=== PATIENT | male | born 1950 | race Caucasian/White ===

== ENCOUNTER 2019-06-09 10:32 | Outpatient (CLI) | payer MEDICARE, OTHER, SELFPAY | END 2019-06-09 10:33 | disposition home or self-care (01) | LOC: LAB 10:37 | PROVIDERS: Family Provider Nurse Practitioner Family; PCP Nurse Practitioner Family; Visit Provider Neurological Surgery | DX: Z01.818 Encounter for other preprocedural examination (principal); Z72.0 Tobacco use | CPT/HCPCS: 36415; 80323 ==

== ENCOUNTER → 2019-10-30 16:13 | Outpatient (BNVA) | payer MEDICARE, OTHER, SELFPAY | PROVIDERS: Family Provider Nurse Practitioner Family; PCP Nurse Practitioner Family; Visit Provider Nurse Practitioner | DX: Z87.891 Personal history of nicotine dependence (principal); J18.8 Other pneumonia, unspecified organism | CPT/HCPCS: 71046 ==

== ENCOUNTER → 2019-11-19 15:45 | Outpatient (BNVA) | payer MEDICARE, OTHER, SELFPAY | PROVIDERS: Family Provider Nurse Practitioner Family; PCP Nurse Practitioner Family; Visit Provider Nurse Practitioner | DX: R05 Cough (principal) | CPT/HCPCS: 71046 ==

== ENCOUNTER → 2019-12-22 14:22 | Outpatient (BNVA) | payer MEDICARE, OTHER, SELFPAY | PROVIDERS: Family Provider Nurse Practitioner Family; PCP Nurse Practitioner Family; Visit Provider Nurse Practitioner Family | DX: G47.34 Idiopathic sleep related nonobstructive alveolar hypoventilation (principal); R07.89 Other chest pain; R06.83 Snoring; R05 Cough | CPT/HCPCS: 71046; 85025 ==

== ENCOUNTER 2019-12-31 11:02 | Outpatient (CLI) | payer MEDICARE, OTHER, SELFPAY ==
--- NOTE | 2019-12-31 11:15 | CT_ITS ---
WS: [id number] CT CHEST TECHNIQUE: Noncontrast CT of the chest with coronal and sagittal reformatted images. CLINICAL INFORMATION: persistent cough, chest pain COMPARISON: None. DLP: 806.[address] scans at use at least one of these dose optimization techniques: automat ed exposure control; mA and/or kV adjustment per patient size (includes targeted exams where dose is matched to clinical indication); or iterative reconstruction. FINDINGS: Mild chronic emphysematous changes. No acute pulmonary infiltrates. Atelectasis in the lung bases. Mu ltiple small noncalcified pulmonary nodules in both lungs largest measuring 4 to 5 mm. Several nodule s are subpleural in location. Approximately 8-10 small nodules. Recommend 6 month follow-up. Thyroid gland is normal. Aortic calcification. No mediastinal or hilar lymphadenopathy. Adrenal glands are normal. Mild thoracic kyphosis. Prior vertebroplasty changes at L1. CT/CT chest wo con [id number] IMPRESSION: 1. Mild chronic emphysematous changes. 2. Numerous noncalcified pulmonary nodules in both lungs measuring 4 to 5 mm i n maximum dimension. Recommend 6 month follow-up. 3. No mediastinal or hilar lymphadenopathy. 4. Mild chronic emphysematous changes. 5. No acute pulmonary infiltrates.
== END 2019-12-31 11:03 | disposition home or self-care (01) ==
LOC: RADWPI 11:05
PROVIDERS: Family Provider Nurse Practitioner Family; PCP Nurse Practitioner Family; Visit Provider Nurse Practitioner Family
DX: R05 Cough (principal); R07.9 Chest pain, unspecified; J43.9 Emphysema, unspecified; R91.8 Other nonspecific abnormal finding of lung field
CPT/HCPCS: 71250

== ENCOUNTER 2020-01-08 15:50 | Emergency (ER) | payer MEDICARE, OTHER, SELFPAY ==
[2020-01-08 15:56] VITALS: BP 131/98; PULSE 0; RESP 20; TEMP 36.8; O2SAT 96; BMI 26.6
--- NOTE | 2020-01-08 16:10 | ED_ITS ---
HPI - Back Pain/Injury General: Chief Complaint: Back Pain/Injury Stated Complaint: BACK PAIN Time Seen by Provider: 01/08/20 16:05 History of Present Illness: HPI Narrative: She complains about is sciatic nerve left leg is inflamed is waiting pain stimulator but this is a worse has been in a while radiates down his left hip down all the way to his foot. And he says pain radiates up his back into his shoulders down both arms also he denies diaphoresis shortness of breath chest pain chest pressure related problems that is all from his back he is had this happen before. Takes a lot of medications. MD elicited complaint: back pain Pertinent past history: other (Sciatica) Onset (ago): year(s) Timing: constant Severity: severe Similar Symptoms Previously: Yes Quality: sharp and aching Location: lumbar spine Radiation: buttocks, left upper leg and left leg below the knee Exacerbating factors: movement Relieving factors: none Associated symptoms: Reports no associated symptoms; Deny abdominal pain, chills, fever(s), nausea or vomiting Review of Systems Const: Denies: fever(s), chills or body aches Eyes: Denies: change in vision or blurry vision ENMT: Denies: throat pain or nasal congestion Card: Denies: chest pain or dyspnea on exertion Resp: Denies: dyspnea, productive cough or non-productive cough GI: Denies: abdominal pain, nausea or vomiting : Denies: difficulty urinating Musc: Reports: back pain (Says his back pain is flared up which he has had happen plenty at times is worse the last day or 2 is going down his left leg all the way down to his foot that medication is not helping like he normally does.) and extremity pain Skin/Breast: Denies: rash Neuro: Denies: headache(s) Psych: Denies: anxiety or depression Rivas/Lymph: Denies: easy bruising PFSH ED PFSH: Medical History (Updated 01/07/20 @ 16:31 by Miquel Bowman MD) Anxiety Back pain with history of spinal surgery Chronic obstructive pulmonary emphysema DDD (degenerative disc disease) Environmental and seasonal allergies Hypertension Pulmonary nodules Surgical History History of appendectomy History of hip fracture Left Hip October 11, 2019 surgery in [place], [place] History of knee surgery History of lumbar surgery Family History Other Arthritis Denies family history of Bleeding disorder Social History Smoking and tobacco status: current some day smoker cigarettes Packs smoked per day: 0.5 Years cigarettes smoked: 50 Second hand smoke exposure: Yes Smoking risk assessment/counseling performed?: Yes Alcohol intake: current Alcohol intake frequency: few times a month Desire information about alcohol rehabilitation?: No Counseling given: No Desire information about substance/drug rehabilitation?: No Counseling given: No Caregiver/support person: No Lives independently: Yes Housing: House Marital status: Single Number of children: 0 Highest education level completed: Associate Degree: Occupational, Technical, Vocational Program service: Yes Current occupational status: retired Pets and animals: Yes History of recent travel: No Current gender identity: Male Physical Exam Narrative: EXAM NARRATIVE: Patient appears at these uncomfortable is staying up in the room is walking with a cane which keeps her left leg off the floor somewhat leaned forward Const: COMMON NORMALS: no acute distress, average body habitus and patient oriented x3 HENMT: COMMON NORMALS: normocephalic HEAD & SCALP: normal to inspection and normocephalic FACE & SINUS: normal facial exam Eye: COMMON NORMALS: conjunctivae normal GENERAL EYE: appearance normal, both eyes and all related structures CONJUNCTIVA: Yes conjunctivae normal Neck/C-Spine: COMMON NORMALS: no JVD Chest: COMMONS NORMALS: normal inspection of the chest Resp: COMMON NORMALS: normal respiratory effort and clear to auscultation bilaterally AUSCULTATION: clear to auscultation bilaterally Cardio: COMMON NORMALS: no JVD, regular rate and regular rhythm RATE: regular rate RHYTHM: regular rhythm GI: COMMON NORMALS: Normal to inspection, nondistended, normoactive bowel sounds present Back/Pelvis: LUMBAR SPINE/LOWER BACK: Yes straight leg raise positive left (The limb and raise at 30 degrees no numbness in extremity neurovascular status intact no swelling) Extremity: COMMON NORMALS: normal to inspection and full ROM Neuro: COMMON NORMALS: patient oriented x3 Course Vital Signs: Vital signs: Vital Signs Temperature 98.3 F 01/08/20 15:56 Pulse Rate 0 L 08/13/20 15:56 Respiratory Rate 20 H 01/08/20 15:56 Blood Pressure 131/98 01/08/20 15:56 Pulse Oximetry 96 01/08/20 15:56 Discharge Plan Discharge Prescriptions: No Action betamethasone acet,sod phos [Celestone Soluspan] 6 mg/mL suspension 6 mg intra-articular ONCE Qty: 1 RF: 0 bupivacaine (PF) 0.5 % (5 mg/mL) solution 50 mg intra-articular ONCE Qty: 2 RF: 0 lidocaine (PF) 10 mg/mL (1 %) solution 10 mg intra-articular ONCE Qty: 2 RF: 0 hydrocodone-acetaminophen [[place]] 10-325 mg tablet 1 tab PO TID PRNRF: 0 omeprazole 20 mg capsule,delayed release(DR/EC) 20 mg PO BID RF: 0 omega-3 fatty acids 500 mg capsule 500 mg PO BID RF: 0 Complete Multivitamin Tablet 1 tab PO ONCE RF: 0 amlodipine 10 mg tablet 10 mg PO ONCE PRNRF: 0 diclofenac sodium 75 mg tablet,delayed release (DR/EC) 75 mg PO DAILY RF: 0 gabapentin 300 mg capsule 900 mg PO TID RF: 0 methocarbamol [Robaxin-750] 750 mg tablet 750 mg PO QID RF: 0 guaifenesin [Adult Tussin Chest Congestion] 100 mg/5 mL liquid 200 mg PO Q4H Qty: 240 RF: 0 (DME) Oxygen supply See Rx Instructions .Route .MEDSUPPLY Qty: 1 RF: 0 loratadine [Claritin] 10 mg tablet 10 mg PO DAILY RF: 0 Anoro Ellipta 62.5-25 mcg/actuation blister with device 1 inh INHALATION DAILY Qty: 60 RF: 3 albuterol sulfate [ProAir HFA] 90 mcg/actuation HFA aerosol inhaler 2 inh INHALATION QID PRN (Reason: shortness of breath or wheezing) Qty: 18 RF: 0 Coding Level of Care Code ED Sql Manager for Chg Fwd
[2020-01-08] MEDS: ondansetron 4 MG Tablet 8 MG PO (16:19)
[2020-01-08] MEDS: methylPREDNISolone (DEPO) 80 MG/ML INJ 1 mL IM (16:19)
[2020-01-08] MEDS: morphine 4 mg/mL SDV 1 mL IM (16:19)
--- NOTE | 2020-01-08 16:33 | PC.NURSE ---
pt concerned about tingling in right fingertips after morphine. ED provider notified.
[2020-01-08 17:04] VITALS: BP 137/84; PULSE 73; O2SAT 95
== END 2020-01-08 17:04 | disposition home or self-care (01) ==
PROVIDERS: Emergency Provider Nurse Practitioner Family; PCP Nurse Practitioner Family
DX: M54.9 Dorsalgia, unspecified (principal); I10 Essential (primary) hypertension; F17.210 Nicotine dependence, cigarettes, uncomplicated
CPT/HCPCS: 12345; 96372; 99281; 99283; J1040; J2270; Q0162

== ENCOUNTER → 2020-02-23 11:39 | Outpatient (BNVA) | payer MEDICARE, OTHER, SELFPAY | PROVIDERS: PCP Nurse Practitioner Family; Visit Provider Internal Medicine | DX: Z20.828 Contact with and (suspected) exposure to other viral communicable diseases (principal) | CPT/HCPCS: 87635 ==

== ENCOUNTER 2020-02-25 12:51 | Outpatient (CLI) | payer MEDICARE, OTHER, SELFPAY ==
--- NOTE | 2020-02-25 14:40 | PFTS_ITS ---
Date of Study:02/25/20 Date of Dictation: MECHANICS: Forced vital capacity (FVC) is normal. Forced expiratory volume in one second (FEV1) is normal. FEV1/FVC is reduced. FLOW VOLUME LOOP: Mild scooping. LUNG VOLUMES: Total lung capacity (TLC) is normal. Residual volume (RV) is normal. DIFFUSING CAPACITY FOR CARBON MONOXIDE: Mild reduced. INTERPRETATION: The pulmonary function tests are normal. Lung volumes are normal. Gas exchange (DLCO) is mildly reduced. MTDD
== END 2020-02-25 12:52 | disposition home or self-care (01) ==
LOC: RT 12:52
PROVIDERS: PCP Nurse Practitioner Family; Visit Provider Internal Medicine Pulmonary Disease
DX: R91.8 Other nonspecific abnormal finding of lung field (principal); F17.200 Nicotine dependence, unspecified, uncomplicated
CPT/HCPCS: 94010; 94618; 94726; 94729

== ENCOUNTER 2020-03-04 20:00 | Outpatient (CLI) | payer MEDICARE, OTHER, SELFPAY | END 2020-03-04 20:01 | disposition home or self-care (01) | LOC: SLEEP 03-05 08:17 | PROVIDERS: PCP Nurse Practitioner Family; Visit Provider Specialist | DX: R06.83 Snoring (principal); R53.83 Other fatigue; G47.33 Obstructive sleep apnea (adult) (pediatric) | CPT/HCPCS: 95810 ==

== ENCOUNTER 2020-07-08 10:40 | Outpatient (CLI) | payer MEDICARE, OTHER, SELFPAY ==
--- NOTE | 2020-07-08 10:45 | CT_ITS ---
WS: [id number] CT CHEST WITHOUT INTRAVENOUS CONTRAST HISTORY: Pulmonary emphysema TECHNIQUE: Contiguous 5 mm axial imaging performed on the thorax. Coronal and sagittal reformats are submitted. All CT scans at [facility] use at least one of these dose optimization techniq ues: automated exposure control; mA and/or kV adjustment per patient size (includes targeted exams wh ere dose is matched to clinical indication); or iterative reconstruction. CONTRAST: None DLP: 711.33 mGy.cm COMPARISON: 12/31/2019 Lungs and central airway: Chronic emphysema. There are numerous bilateral pulmonary nodules with the largest measuring 6 mm in the LEFT lower lobe. No increase in size or number of these nodules. Nodule s are on a background of emphysema and interstitial thickening. Mild tree-in-bud opacifications at th e lung bases are similar to the prior study. Mild changes of interstitial fibrosis. Pleura: Normal. No pleural effusion. Heart and pericardium: Normal size heart with no pericardial effusion. Mediastinum and lillian: No mediastinum or hilar adenopathy. Vessels: Mild atherosclerosis aorta. Coronary artery calcifications. Chest wall and lower neck: No soft tissue masses. Upper abdomen: Mild atherosclerosis aorta. No abnormality. Dorsal column stimulator generator over th e posterior LEFT upper abdomen. Osseous structures: L1 compression fracture with vertebroplasty. Mild anterior wedging of T12, T10 an d T9. Prior fracture sternal body. CT/CT chest wo con [id number] IMPRESSION: 1. Chronic emphysema. 2. Noncalcified and calcified pulmonary nodules without increase in size or nu mber since 12/31/2019. Recommend 12 month follow-up CT.
== END 2020-07-08 10:41 | disposition home or self-care (01) ==
LOC: RADWPI 10:41
PROVIDERS: PCP Nurse Practitioner; Visit Provider Internal Medicine Pulmonary Disease
DX: J43.9 Emphysema, unspecified (principal); R91.8 Other nonspecific abnormal finding of lung field
CPT/HCPCS: 71250

== ENCOUNTER → 2020-11-02 11:42 | Outpatient (BNVA) | payer MEDICARE, OTHER, SELFPAY | PROVIDERS: PCP Nurse Practitioner; Visit Provider Nurse Practitioner | DX: J43.9 Emphysema, unspecified (principal) | CPT/HCPCS: 71046; 81000; 85025 ==

== ENCOUNTER 2021-03-08 10:41 | Outpatient (CLI) | payer MEDICARE, OTHER, SELFPAY ==
--- NOTE | 2021-03-08 11:45 | CT_ITS ---
WS: [id number] LDCT LUNG CANCER SCREENING HISTORY: Lung screening TECHNIQUE: Axial imaging performed from the apices to 1 cm below the costophrenic angles. Coronal and sagittal reformats are submitted with axial MIP series. All CT scans at [facility] use at least one of these dose optimization techniques: automated exposure control; mA and/or kV adjustment per patient size (includes targeted exams where dose is matched to clinical indication); or iterativ e reconstruction. DLP: 55.38 mGy.cm DIvol: 1.58 mGy COMPARISON: Chest CT to 2020 Diagnostic quality: Satisfactory Lung Nodules: Stable 5 mm nodule RIGHT upper lobe. Stable ovoid 6 mm nodule LEFT lower lobe. No new n odules. Lungs: Hyperexpanded lungs from emphysema. Heart: Mild enlargement of the heart. Scattered coronary artery calcifications. Other findings: Mild atherosclerosis aorta. Small mediastinal and an hilar lymph nodes. Small hiatal hernia. Dorsal column stimulator projects posterior to the mid thoracic cord. Prior fracture with hea ling of the sternal body. CT/CT lung screening [id number] IMPRESSION: LUNG-RADS: 2-Benign Appearance or Behavior FOLLOW UP: 12 Month: Continue annual screening with LDCT OTHER FINDINGS (S MODIFIER): None.
== END 2021-03-08 10:42 | disposition home or self-care (01) ==
PROVIDERS: PCP Nurse Practitioner; Visit Provider Internal Medicine Pulmonary Disease
DX: Z12.2 Encounter for screening for malignant neoplasm of respiratory organs (principal); Z87.891 Personal history of nicotine dependence; I70.0 Atherosclerosis of aorta; K44.9 Diaphragmatic hernia without obstruction or gangrene
CPT/HCPCS: 71271

== ENCOUNTER → 2021-04-29 11:43 | Outpatient (BNVA) | payer MEDICARE, OTHER, SELFPAY | PROVIDERS: PCP Nurse Practitioner; Visit Provider Surgery | DX: R10.13 Epigastric pain (principal); R10.9 Unspecified abdominal pain; Z20.822 Contact with and (suspected) exposure to COVID-19 | CPT/HCPCS: 80053; 83690; 85025; 87635 ==

== ENCOUNTER 2021-05-04 12:56 | Outpatient (CLI) | payer MEDICARE, OTHER, SELFPAY ==
[2021-05-04] MEDS: iohexol 300 mg/mL 100 mL Btl IV (14:46)
[2021-05-04] MEDS: iohexol 300 mg/mL 50 mL Btl PO (14:47)
--- NOTE | 2021-05-04 15:00 | CT_ITS ---
WS: [id number] Exam: CT abdomen pelvis w con* [id number] Date/Time of Exam: 05/04/2021 1:06 PM Reason For Exam: R10.13 - Epigastric pain DLP: 1089.[address] scans at [facility] use at least one of these dose optimization techniques: automated e xposure control; mA and/or kV adjustment per patient size (includes targeted exams where dose is matc hed to clinical indication); or iterative reconstruction. Lower lung zones are clear. Small hiatal hernia. The stomach is otherwise unremarkable. There is dila tation of the intra and extrahepatic bile ducts. The common bile duct measures as much as 2 cm at gre atest diameter. The common duct measures 1.5 cm at the level of the pancreatic head. No obvious calci fied stones in the gallbladder. No sign of acute cholecystitis. Mild intrahepatic ductal dilatation. The liver and spleen are otherwise unremarkable. No obvious pancreatic mass. The abdominal aorta is n ormal in caliber. The portal vein and IVC are patent. Normal adrenal glands and kidneys. Small bowel loops are normal in caliber. Colonic diverticulosis but no sign of acute diverticulitis. Postoperativ e change with anastomosis in the sigmoid colon. No sign of acute appendix. No free air. No lymphadeno clifford. Intact urinary bladder. No mass or adenopathy seen in the pelvis. Unremarkable prostate gland and seminal vesicles. Tiny fat filled periumbilical hernia. Neurostimulator pack seen along the poste rior left flank region. Hardware in the proximal left femur. Anterior fusion with disc spacer at L5-S 1. Old compression fracture of L1 with vertebroplasty, no destructive bone lesions are seen. Recommendations: ERCP or MRCP might be considered for further workup. CT/CT abdomen pelvis w con* [id number] IMPRESSION: 1. Intrahepatic and extrahepatic ductal dilatation. The common bile duct measur es as much as 2 cm at greatest diameter. The common duct measures 1.5 cm in stacie meter at the level of the pancreatic head. Obstruction secondary to retained st one or neoplasm should be considered. 2. No obvious pancreatic mass. No lymphadenopathy or acute finding in the abdom en or pelvis. 3. Mild colonic diverticulosis. Postoperative changes in the sigmoid colon. 4. Other minor findings as above.
== END 2021-05-04 12:57 | disposition home or self-care (01) ==
PROVIDERS: PCP Nurse Practitioner; Visit Provider Surgery
DX: R10.13 Epigastric pain (principal); K57.90 Diverticulosis of intestine, part unspecified, without perforation or abscess without bleeding
CPT/HCPCS: 74177; Q9967

== ENCOUNTER 2021-05-05 08:29 | Day surgery (SDC) | payer MEDICARE, OTHER, SELFPAY ==
--- NOTE | 2021-05-05 08:45 | W.PM.OPSFHP ---
Same Day Surgery H&P Indication for Procedure/HPI DATE OF PROCEDURE: May 05, 2021 CHIEF COMPLAINT/INDICATIONFOR SURGICAL PROCEDURE: egd/colon PREOP DIAGNOSIS: abdominal pain PLANNED PROCEDRUE: Operation Date: 05/05/21 09:00 Proposed Procedures p EGD/Colon 75025 R10.13(Not Applicable) - Srikanth Lanier MD s Colonoscopy 06087 R10.13(Not Applicable) - Srikanth Lanier MD Medications/Allergies* Home Medications Medication Instructions Recorded Confirmed Type multivitamin,[id number] 1 tab PO DAILY 06/10/19 05/03/21 History omega-3 fatty acids 500 mg capsule 500 mg PO BID 06/10/19 05/03/21 History gabapentin 300 mg capsule 900 mg PO TID cap 01/07/20 05/03/21 History latanoprost 1 drp OPHTHALMIC (EYE) DAILY 01/08/20 05/03/21 History cetirizine 10 mg tablet 10 mg PO DAILY PRN tab 07/21/20 05/03/21 History tizanidine 2 mg tablet 2 mg PO BID PRN 07/21/20 05/03/21 History oxycodone 10 mg tablet 10 mg PO Q4H PRN 03/15/21 05/03/21 History Allergies/Adverse Reactions Allergy/AdvReac Type Severity Reaction Status Date / Time lisinopril Allergy Unknown Verified 04/29/21 11:03 celecoxib [From Celebrex] AdvReac GI upset Verified 04/29/21 11:03 Pertinent History/Comorbid Conditions* Medical History (Updated 03/15/21 @ 09:08 by Srikanth Lanier MD) Anxiety Barretts esophagus Chronic obstructive pulmonary emphysema DDD (degenerative disc disease) Diverticulitis Environmental and seasonal allergies History of Carreno's esophagus Hypertension Surgical History (Updated 03/15/21 @ 09:08 by Srikanth Lanier MD) History of appendectomy History of colonoscopy 2015 History of esophagogastroduodenoscopy (EGD) 2015 History of hip fracture Left Hip October 11, 2019 surgery in [place], [place] History of knee surgery History of lumbar surgery History of open sigmoidectomy Family History (Updated 09/23/19 @ 09:31 by BILL Quiñones) Arthritis Denies family history of Bleeding disorder Social History Quit status (tobacco): has quit using tobacco Year quit tobacco: October 2020 Former quit date comment: 1ppd x 50 years Second hand smoke exposure: Yes Smoking risk assessment/counseling performed?: Yes Alcohol intake: current Alcohol intake frequency: few times a month Desire information about alcohol rehabilitation?: No Counseling given: No Desire information about substance/drug rehabilitation?: No Counseling given: No Caregiver/support person: No Lives independently: Yes Household members: significant other Housing: House Marital status: Life Partner Number of children: 0 Highest education level completed: Associate Degree: Occupational, Technical, Vocational Program service: Yes Current occupational status: retired Pets and animals: Yes History of recent travel: No Current gender identity: Male Pertinent Exam Findings regular rate & rhythm Recommendations Surgery/Procedure today Coding Level of Care Code Acute Conduit Bender for Ghislaine Gage
[2021-05-05 08:51] VITALS: BP 134/85; PULSE 81; RESP 18; TEMP 36.2; O2SAT 96; BMI 25.2
--- NOTE | 2021-05-05 09:07 | P.ANESASSM_ITS ---
Pre-Anesthetic Assessment Pre-Anesthetic Assessment: Height/Weight: Height 1.73 m Weight 75.296 kg Temp Pulse Resp BP Pulse Ox 97.1 F L 81 18 134/85 96 05/05/21 08:51 05/05/21 08:51 05/05/21 08:51 05/05/21 08:51 05/05/21 08:51 Preop Diagnosis: abdominal pain Proposed Procedure: Operation Date: 05/05/21 09:00 Proposed Procedures p EGD/Colon 54666 R10.13(Not Applicable) - Srikanth Lanier MD s Colonoscopy 33554 R10.13(Not Applicable) - Srikanth Lanier MD Familial anesthetic complications: none Was Beta Raiza taken within 24 hours: N/A Was Clonidine taken within 24 hours: N/A Last intake: Intake Last Liquid Date 05/04/21 Last Liquid Time 23:30 Last Solid Date 05/03/21 Last Solid Time 18:00 Social: Social History: Alcohol (social) and Tobacco (social) Exam: Pre-Anes Outpt Exam: alert, oriented x 3, clear to auscultation bilaterally and regular rate & rhythm Airway: Submandibular: WNL Cervical ROM: WNL MP: 1 Dentition: Full Pulmonary: Pulmonary: COPD CV/HEM: CV/HEM: None reported : : None reported Hepatic: Hepatic: None reported GI: GI: GERD (semi controlled) and Hiatus hernia Metabolic: Metabolic: None reported Musc/skel: Musc/skel: Lower Back Pain, OA/DJD and Weakness (lower extremities) Neuropsych: Neuropsych: Anxiety Anesthetic Plan: ASA status: 2 Anesthesia: MAC Risk of > 500 ml blood loss (7ml/kg in children): No PFSH Anesthesia PFSH: Medical History Anxiety Barretts esophagus Chronic obstructive pulmonary emphysema DDD (degenerative disc disease) Diverticulitis Environmental and seasonal allergies History of Carreno's esophagus Hypertension Surgical History History of appendectomy History of colonoscopy 2015 History of esophagogastroduodenoscopy (EGD) 2015 History of hip fracture Left Hip October 11, 2019 surgery in [place], [place] History of knee surgery History of lumbar surgery History of open sigmoidectomy Family History Other Arthritis Denies family history of Bleeding disorder Social History Quit status (tobacco): has quit using tobacco Year quit tobacco: October 2020 Former quit date comment: 1ppd x 50 years Second hand smoke exposure: Yes Smoking risk assessment/counseling performed?: Yes Alcohol intake: current Alcohol intake frequency: few times a month Desire information about alcohol rehabilitation?: No Counseling given: No Desire information about substance/drug rehabilitation?: No Counseling given: No Caregiver/support person: No Lives independently: Yes Household members: significant other Housing: House Marital status: Life Partner Number of children: 0 Highest education level completed: Associate Degree: Occupational, Technical, Vocational Program service: Yes Current occupational status: retired Pets and animals: Yes History of recent travel: No Current gender identity: Male Data Anesthesia Cardiac Studies: No Data to Display
[2021-05-05] MEDS: sodium chloride 0.9% 1,000 ML 30 ML IV (09:09)
[2021-05-05 10:03] LABS: Basophils # 0.1 10^3/uL (0.0-0.1); Basophils % 0.5 %; Eosinophils # 0.1 10^3/uL (0.0-0.8); Eosinophils % 0.8 %; Hematocrit 41.5 % (42.0-52.0); Hemoglobin 13.3 g/dL (11.7-16.6); Lymphocytes # 1.5 10^3/uL (0.8-4.8); Lymphocytes % 14.1 %; Mean Corpuscular Hemoglobin 30.2 pg (28.0-34.0); Mean Corpuscular Volume 94.3 fl (80-94); Mean Platelet Volume 9.9 fL (7.4-10.4); Monocytes # 0.9 10^3/uL (0.2-0.9); Monocytes % 8.8 %; Neutrophils % 75.3 %; Nucleated Red Blood Cells % 0 %; Platelet Count 273 10^3/cmm (130-400); Red Cell Distribution Width 12.9 % (12.1-15.1); White Blood Count 10.6 10^3/uL (4.0-10.0)
[2021-05-05 10:23] VITALS: BP 105/66; PULSE 75; RESP 16; TEMP 36.1; O2SAT 98
--- NOTE | 2021-05-05 10:29 | ANE.PACU2 ---
Inpatient post-anesthesia follow up: Airway intact: Yes Vital signs: Temperature 97.0 F Pulse Rate 75 Respiratory Rate 16 Blood Pressure 105/66 Pulse Oximetry 98 Oxygen Delivery Me thod Room Air Oxygen Flow Rate Fraction of Inspir ed Oxygen Hydration adequate: Yes Nausea and vomiting: No Pain level: 1 Mental status: Baseline
[2021-05-05 10:32] LABS: Alanine Aminotransferase 11 U/L (0-41); Albumin Level 4.1 g/dL (3.5-5.2); Alkaline Phosphatase 89 IU/L (40-130); Anion Gap 14.5 (5-19); Aspartate Amino Transferase 13 U/L (0-40); Blood Urea Nitrogen 11 mg/dL (8-23); Calcium 8.5 mg/dL (8.5-10.5); Cancer Antigen 19 9 5.55 U/mL (0-35); Carbon Dioxide 22 mmol/L (22-29); Chloride 108 mmol/L (98-107); Globulin 3.3 g/dL (1.3-4.6); Glomerular Filtration Rate 66.6 mL/min (90-130); Glucose 101 mg/dL (65-115); Lipase 32 U/L (13-60); Osmolality Calculated 290 mOsm/kg (285-295); Potassium 4.5 mmol/L (3.5-5.1); Sodium 140 mmol/L (136-145); Total Bilirubin 0.3 mg/dL (0.15-1.2); Total Protein 7.4 g/dL (6.6-8.7)
[2021-05-05 10:33] VITALS: BP 115/75; PULSE 80; RESP 16; TEMP 36.2; O2SAT 96
== END 2021-05-05 10:58 | disposition home or self-care (01) ==
PROVIDERS: PCP Nurse Practitioner; Visit Provider Surgery
PROC: 0DJ08ZZ Inspection of Upper Intestinal Tract, Via Natural or Artificial Opening Endoscopic (ICD-10-PCS; CPT 43235; principal; 2021-05-05 09:00)
PROC: 0DJD8ZZ Inspection of Lower Intestinal Tract, Via Natural or Artificial Opening Endoscopic (ICD-10-PCS; CPT 45378; 2021-05-05 09:00)
DX: K21.00 Gastro-esophageal reflux disease with esophagitis, without bleeding (principal); K29.50 Unspecified chronic gastritis without bleeding; K64.8 Other hemorrhoids; R10.9 Unspecified abdominal pain; J44.9 Chronic obstructive pulmonary disease, unspecified; F41.9 Anxiety disorder, unspecified; I10 Essential (primary) hypertension; K44.9 Diaphragmatic hernia without obstruction or gangrene; K57.92 Diverticulitis of intestine, part unspecified, without perforation or abscess without bleeding; Z87.891 Personal history of nicotine dependence
CPT/HCPCS: 43239; 45378; 80053; 83690; 85025; 86301; 88305; 96360; 96361; J2704; J7030

== ENCOUNTER 2021-06-08 09:58 | Emergency (ER) | payer OTHER, MEDICARE, SELFPAY ==
[2021-06-08 10:35] VITALS: BP 150/80; PULSE 93; RESP 20; TEMP 36.6; O2SAT 95; BMI 27.3
--- NOTE | 2021-06-08 10:48 | W.ED.BACK ---
HPI - Back Pain/Injury General: Chief Complaint: Back Pain/Injury Stated Complaint: Alot of pain Lower back, all the way down to knees Time Seen by Provider: 06/08/21 10:42 History of Present Illness: HPI Narrative: Patient presents with ongoing chronic back pain. Patient said his back's been flaring up over the last few weeks. Does [facility]. Patient says his osteoarthritis is getting pretty bad and it is making a sciatica flareup. Patient called [facility] today and they said they will be able to get him in at 0 900 tomorrow but patient would like to have something to help with the pain that he has presently until that appointment. Patient denies any recent injury fever chills bowel or bladder problems MD elicited complaint: back pain Pertinent past history: prior back pain and back surgery Onset (ago): year(s) Timing: progressively worsening Severity: moderate Similar Symptoms Previously: Yes Quality: aching Location: lumbar spine, right lower back and left lower back Radiation: buttocks, left upper leg and right upper leg Exacerbating factors: movement, supine positioning and walking Relieving factors: none Associated symptoms: Reports no associated symptoms; Deny abdominal pain, chills, fever(s), nausea or vomiting Review of Systems Const: Denies: fever(s), chills or body aches Eyes: Denies: change in vision or blurry vision ENMT: Denies: throat pain or nasal congestion Card: Denies: chest pain or dyspnea on exertion Resp: Denies: dyspnea, productive cough or non-productive cough GI: Denies: abdominal pain, nausea or vomiting : Denies: difficulty urinating Musc: Reports: back pain (Chronic, treated at pain clinic, takes oxycodone); Denies: extremity pain Skin/Breast: Denies: rash Neuro: Denies: headache(s) Psych: Denies: anxiety or depression Rivas/Lymph: Denies: easy bruising PFSH ED PFSH: Medical History Anxiety Barretts esophagus Chronic obstructive pulmonary emphysema DDD (degenerative disc disease) Diverticulitis Environmental and seasonal allergies Helicobacter pylori gastritis History of Carreno's esophagus Hypertension Surgical History History of appendectomy History of colonoscopy (05/05/21) 2015 2020 - mild diverticulosis History of esophagogastroduodenoscopy (EGD) (05/05/21) 2015 2020 - esophagitis History of hip fracture Left Hip October 11, 2019 surgery in [place], [place] History of knee surgery History of lumbar surgery History of open sigmoidectomy Family History Other Arthritis Denies family history of Bleeding disorder Social History Quit status (tobacco): has quit using tobacco Year quit tobacco: October 2020 Former quit date comment: 1ppd x 50 years Second hand smoke exposure: Yes Smoking risk assessment/counseling performed?: Yes Alcohol intake: current Alcohol intake frequency: few times a month Desire information about alcohol rehabilitation?: No Counseling given: No Desire information about substance/drug rehabilitation?: No Counseling given: No Caregiver/support person: No Lives independently: Yes Household members: significant other Housing: House Marital status: Life Partner Number of children: 0 Highest education level completed: Associate Degree: Occupational, Technical, Vocational Program service: Yes Current occupational status: retired Pets and animals: Yes History of recent travel: No Current gender identity: Male Physical Exam Const: COMMON NORMALS: average body habitus GENERAL APPEARANCE: cooperative Resp: COMMON NORMALS: normal respiratory effort GI: INSPECTION: Yes normal to inspection Back/Pelvis: OTHER: Patient has pain with ambulation, does have a forward leaning gait Psych: COMMON NORMALS: mental status grossly normal Course Vital Signs: Vital signs: Vital Signs Temperature 97.8 F 06/08/21 10:35 Pulse Rate 93 06/08/21 10:35 Respiratory Rate 20 H 06/08/21 10:35 Blood Pressure 150/80 06/08/21 10:35 Pulse Oximetry 95 06/08/21 10:35 Discharge Plan Discharge Prescriptions: No Action gabapentin 300 mg capsule 900 mg PO TID RF: 0 lactulose 10 gram/15 mL solution 10 g PO BID 7 Days Qty: 210 RF: 0 cetirizine [Zyrtec] 10 mg tablet 10 mg PO DAILY PRN (Reason: Allergy Symptoms) RF: 0 tizanidine 2 mg tablet 2 mg PO BID PRN (Reason: Pain) RF: 0 oxycodone 10 mg tablet 10 mg PO Q4H PRN (Reason: Pain) RF: 0 azelastine 137 mcg (0.1 %) aerosol,spray 1 spray intranasal BID Qty: 30 RF: 1 Anoro Ellipta 62.5-25 mcg/actuation blister with device 1 inh inhalation DAILY 90 Days Qty: 180 RF: 3 ondansetron HCl [Zofran] 4 mg tablet 4 mg PO Q12H Qty: 10 RF: 0 latanoprost 0.005 % Drops 1 drp OPHTHALMIC (EYE) DAILY RF: 0 Protonix 40 mg tablet,delayed release (DR/EC) 40 mg PO BID Qty: 28 RF: 0 Coding Level of Care Code ED Distribution A Class Lineman for Ghislaine Gage
[2021-06-08] MEDS: dexamethasone 10 mg/mL INJ IM (11:03)
[2021-06-08] MEDS: ketorolac 60 mg/2 mL INJ IM (11:04)
[2021-06-08 11:54] VITALS: BP 154/83; PULSE 88; RESP 20; TEMP 36.6; O2SAT 96
== END 2021-06-08 11:55 | disposition home or self-care (01) ==
PROVIDERS: Emergency Provider Nurse Practitioner Family; PCP Nurse Practitioner
DX: M54.50 Low back pain, unspecified (principal); J44.9 Chronic obstructive pulmonary disease, unspecified; I10 Essential (primary) hypertension; Z87.891 Personal history of nicotine dependence; Z79.899 Other long term (current) drug therapy
CPT/HCPCS: 80053; 82306; 82607; 84403; 84443; 85025; 96372; 99283; J1100; J1885

== ENCOUNTER → 2021-08-29 08:51 | Outpatient (BNVA) | payer MEDICARE, OTHER, SELFPAY | PROVIDERS: PCP Nurse Practitioner; Visit Provider Nurse Practitioner Family | DX: R53.83 Other fatigue (principal); R39.9 Unspecified symptoms and signs involving the genitourinary system; E55.9 Vitamin D deficiency, unspecified | CPT/HCPCS: 80053; 81000; 82306; 85025 ==

== ENCOUNTER → 2021-11-02 14:44 | Outpatient (BNVA) | payer OTHER, MEDICARE, SELFPAY | PROVIDERS: PCP Nurse Practitioner; Referring Provider Anesthesiology Pain Medicine; Visit Provider Podiatrist Foot & Ankle Surgery | DX: M79.671 Pain in right foot (principal); M77.41 Metatarsalgia, right foot | CPT/HCPCS: 73630; 99203 ==

== ENCOUNTER → 2022-01-04 13:37 | Outpatient (BNVA) | payer OTHER, MEDICARE, SELFPAY | PROVIDERS: PCP Nurse Practitioner; Visit Provider Podiatrist Foot & Ankle Surgery | DX: M77.41 Metatarsalgia, right foot (principal); M21.70 Unequal limb length (acquired), unspecified site | CPT/HCPCS: 99213; 99214 ==

== ENCOUNTER 2022-02-07 15:45 | Outpatient (CLI) | payer OTHER, SELFPAY ==
--- NOTE | 2022-02-07 16:24 | XRR_ITS ---
PROCEDURE INFORMATION: Exam: XR Thoracic Spine Exam date and time: 02/07/2022 4:33 PM Age: 71 years old Clinical indication: Pain in thoracic spine; Prior surgery; Additional info: Thoracic spine pain TECHNIQUE: Imaging protocol: Radiologic exam of the thoracic spine. Views: 3 views. COMPARISON: CT abdomen pelvis w con* [id number] 05/04/2021 2:34 PM FINDINGS: Bones/joints: Vertebroplasty material noted in the L1 vertebral body. Spinal stimulator leads noted in the lower thoracic spine. No acute fracture. Normal alignment. Soft tissues: Unremarkable. XR/XR thoracic spine 2V [id number] IMPRESSION: No acute findings.
--- NOTE | 2022-02-07 16:24 | XRR_ITS ---
PROCEDURE INFORMATION: Exam: XR Cervical Spine Exam date and time: 02/07/2022 4:33 PM Age: 71 years old Clinical indication: Pain; Cervicalgia; Prior surgery TECHNIQUE: Imaging protocol: Radiologic exam of the cervical spine. Views: 4 or 5 views. COMPARISON: CT lung screening [id number] 03/08/2021 10:54 AM FINDINGS: Bones/joints: No acute fracture. Normal alignment. Vertebral body and disc heights are intact. Moderate multilevel facet arthropathy throughout the cervical spine. Soft tissues: Unremarkable. XR/XR cervical spine 4-5V [id number] IMPRESSION: No acute findings. Moderate multilevel facet arthropathy throughout the cervical spine.
== END 2022-02-07 15:46 | disposition home or self-care (01) ==
LOC: RAD 15:54
PROVIDERS: PCP Nurse Practitioner; Visit Provider Nurse Practitioner Family
DX: M54.6 Pain in thoracic spine (principal); M47.812 Spondylosis without myelopathy or radiculopathy, cervical region
CPT/HCPCS: 72050; 72070

== ENCOUNTER → 2022-02-20 13:26 | Outpatient (BNVA) | payer OTHER, SELFPAY | PROVIDERS: PCP Nurse Practitioner; Visit Provider Internal Medicine Pulmonary Disease | DX: J43.9 Emphysema, unspecified (principal); R91.8 Other nonspecific abnormal finding of lung field; G47.33 Obstructive sleep apnea (adult) (pediatric); F17.210 Nicotine dependence, cigarettes, uncomplicated; Z99.81 Dependence on supplemental oxygen | CPT/HCPCS: 99214 ==

== ENCOUNTER 2022-04-10 14:00 | Outpatient (CLI) | payer OTHER, SELFPAY ==
--- NOTE | 2022-04-10 15:00 | CT_ITS ---
WS: [id number] LDCT LUNG CANCER SCREENING HISTORY: lung screening TECHNIQUE: Axial imaging performed from the apices to 1 cm below the costophrenic angles. Coronal and sagittal reformats are submitted with axial MIP series. All CT scans at [facility] use at least one of these dose optimization techniques: automated exposure control; mA and/or kV adjustment per patient size (includes targeted exams where dose is matched to clinical indication); or iterativ e reconstruction. DLP: 89.70 mGy.cm DIvol: Mean CTDIvol: 1.60 (mGy) COMPARISON: 03/08/2021, 12/31/2019 Diagnostic quality: Satisfactory Lung Nodules: There are several noncalcified, subcentimeter pulmonary nodules. The largest nodules me asure 6 mm in the LEFT lower lobe. Stable since 12/31/2019. No new pulmonary nodule or enlarging nodule s. New endobronchial soft tissue. Nodular 4 mm component in the proximal LEFT main bronchus with adjacen t thin linear septations. There are a few septations also noted within the proximal RIGHT mainstem br onchus. Lungs: Chronic emphysema. Heart: Normal size heart. No effusion. Mild coronary artery atherosclerosis. Other findings: Mild atherosclerosis aorta. No adenopathy identified on this unenhanced exam. Moderat e hiatal hernia. Mild hepatic steatosis. Mild thickening of the LEFT adrenal gland. CT/CT lung screening [id number] IMPRESSION: LUNG-RADS: 4A-Probably Suspicious FOLLOW UP: 3 Month LDCT [address] follow-up is to reevaluate the new endobronchial septations an d nodule.
== END 2022-04-10 14:01 | disposition home or self-care (01) ==
LOC: RAD 14:01
PROVIDERS: PCP Nurse Practitioner; Visit Provider Internal Medicine Pulmonary Disease
DX: Z12.2 Encounter for screening for malignant neoplasm of respiratory organs (principal); F17.210 Nicotine dependence, cigarettes, uncomplicated
CPT/HCPCS: 71271

== ENCOUNTER 2022-04-27 10:23 | Outpatient (CLI) | payer MEDICARE, OTHER, SELFPAY ==
[2022-04-27 11:53] LABS: Hepatitis C Virus Antibody Non-Reactive (Nonreactive)
== END 2022-04-27 10:24 | disposition home or self-care (01) ==
LOC: LAB 10:28
PROVIDERS: PCP Nurse Practitioner; Visit Provider Behavioral Pediatrics
DX: H16.009 Unspecified corneal ulcer, unspecified eye (principal)
CPT/HCPCS: 36415; 86431; 86803

== ENCOUNTER → 2022-05-08 11:16 | Outpatient (BNVA) | payer OTHER, SELFPAY | PROVIDERS: PCP Nurse Practitioner; Visit Provider Podiatrist Foot & Ankle Surgery | DX: M77.41 Metatarsalgia, right foot (principal); M21.70 Unequal limb length (acquired), unspecified site | CPT/HCPCS: 99213 ==

== ENCOUNTER → 2022-05-16 11:09 | Outpatient (BNVA) | payer OTHER, SELFPAY | PROVIDERS: PCP Nurse Practitioner; Visit Provider Anesthesiology Pain Medicine | DX: M54.12 Radiculopathy, cervical region (principal); M47.812 Spondylosis without myelopathy or radiculopathy, cervical region; M54.9 Dorsalgia, unspecified | CPT/HCPCS: 99205 ==

== ENCOUNTER 2022-06-13 16:12 | Outpatient (CLI) | payer OTHER, SELFPAY ==
--- NOTE | 2022-06-13 16:00 | CT_ITS ---
WS: [id number] CT CERVICAL SPINE HISTORY: M54.12 - Radiculopathy, cervical region TECHNIQUE: Contiguous 2.0 mm axial imaging performed through the entire cervical spine. Sagittal and coronal reformats also performed. All CT scans at [facility] use at least one of these dose o ptimization techniques: automated exposure control; mA and/or kV adjustment per patient size (include s targeted exams where dose is matched to clinical indication); or iterative reconstruction. DLP: 211.37 mGy.cm COMPARISON: Radiograph 02/07/2022 Very slight increase in the cervical lordosis. Posterior alignment is normal. Very slight curvature t o the RIGHT. Patient's head is tilted to the RIGHT. No fractures. Facet joints are normally aligned b ut narrowed by facet joint arthritis. Craniocervical junction is normally aligned. The odontoid proce ss is intact. Lateral masses of C1 and C2 are normal. C2-C3: Small central disc protrusion with no stenosis. Moderate RIGHT facet joint arthritis. C3-C4: Osteophytic ridging around the vertebral body with bilateral moderate facet joint arthritis. M ild central and bilateral foraminal stenosis. C4-C5: Mild osteophytic ridging around the vertebral bodies. Severe RIGHT facet joint arthritis with bony hypertrophy. Mild on the LEFT. Moderate RIGHT foraminal stenosis. C5-C6: Mild vertebral body osteophytic ridging. Mild bilateral facet joint arthritis. No significant stenosis. C6-C7: Moderate to severe LEFT facet joint arthritis. There is an osteophyte from the facet encroachi ng into the foramina. The osteophyte measures 5 x 6 mm and is probably contacting the C7 nerve root. C7-T1: Normal. Soft tissues are normal. Lung apices are clear. CT/CT cervical spin wo con* [id number] IMPRESSION: 1. No acute cervical spine fractures or severe stenosis. 2. Small central disc protrusion at C2-3 with moderate RIGHT facet joint arthr itis. 3. Moderate bilateral facet joint arthritis at C3-4 with mild central and fora nupur stenosis. 4. Severe RIGHT facet joint bony hypertrophy at C4-5. Moderate RIGHT foraminal stenosis. 5. Moderate to severe LEFT facet joint bony hypertrophy without osteophyte raymond suring 5 x 6 mm encroaching into the LEFT foramen and probably contacting the C 7 nerve root.
== END 2022-06-13 16:13 | disposition home or self-care (01) ==
PROVIDERS: PCP Nurse Practitioner; Visit Provider Anesthesiology Pain Medicine
DX: M54.12 Radiculopathy, cervical region (principal); M50.21 Other cervical disc displacement, high cervical region
CPT/HCPCS: 72125

== ENCOUNTER → 2022-06-14 14:23 | Outpatient (BNVA) | payer OTHER, SELFPAY | PROVIDERS: PCP Nurse Practitioner; Visit Provider Anesthesiology Pain Medicine | DX: M47.812 Spondylosis without myelopathy or radiculopathy, cervical region (principal) | CPT/HCPCS: 64490; 64491; 64492 ==

== ENCOUNTER → 2022-06-29 11:27 | Outpatient (BNVA) | payer OTHER, SELFPAY | PROVIDERS: PCP Nurse Practitioner; Visit Provider Anesthesiology Pain Medicine | DX: M47.812 Spondylosis without myelopathy or radiculopathy, cervical region (principal); W19.XXXA Unspecified fall, initial encounter; Y92.009 Unspecified place in unspecified non-institutional (private) residence as the place of occurrence of the external cause; J40 Bronchitis, not specified as acute or chronic | CPT/HCPCS: 71250; 72074; 99214 ==

== ENCOUNTER 2022-07-18 20:00 | Outpatient (CLI) | payer OTHER, SELFPAY | END 2022-07-18 20:01 | disposition home or self-care (01) | LOC: SLEEP 07-19 02:19 | PROVIDERS: PCP Nurse Practitioner; Visit Provider Nurse Practitioner | DX: R06.83 Snoring (principal); R53.83 Other fatigue; G47.33 Obstructive sleep apnea (adult) (pediatric); G47.31 Primary central sleep apnea | CPT/HCPCS: 95810 ==

== ENCOUNTER 2022-07-26 17:27 | Emergency (ER) | payer OTHER, SELFPAY ==
[2022-07-26 17:54] VITALS: BP 135/81; PULSE 92; RESP 22; TEMP 36.7; O2SAT 95; BMI 27.3
[2022-07-26 18:35] LABS: Basophils # 0.1 10^3/uL (0.0-0.1); Basophils % 0.4 %; Eosinophils # 0.1 10^3/uL (0.0-0.8); Eosinophils % 0.7 %; Hematocrit 44.3 % (42.0-52.0); Hemoglobin 14.3 g/dL (11.7-16.6); Lymphocytes # 2.2 10^3/uL (0.8-4.8); Mean Corpuscular HGB Conc 32.3 g/dL (30.0-36.0); Mean Corpuscular Hemoglobin 30.1 pg (28.0-34.0); Mean Corpuscular Volume 93.3 fl (80-94); Mean Platelet Volume 10.1 fL (7.4-10.4); Monocytes # 1.5 10^3/uL (0.2-0.9); Monocytes % 11.1 %; Neutrophils # 9.49 10^3/uL (1.8-7.7); Neutrophils % 70.7 %; Nucleated Red Blood Cells % 0 %; Platelet Count 282 10^3/cmm (130-400); Red Blood Count 4.75 10^6/uL (4.1-5.3); Red Cell Distribution Width 13.1 % (12.1-15.1); White Blood Count 13.4 10^3/uL (4.0-10.0)
[2022-07-26 18:54] LABS: Alanine Aminotransferase 17 U/L (0-41); Albumin Level 4.2 g/dL (3.5-5.2); Alkaline Phosphatase 87 U/L (40-130); Anion Gap 16.4 (5-19); Aspartate Amino Transferase 14 U/L (0-40); Blood Urea Nitrogen 22 mg/dL (8-23); Calcium 9.5 mg/dL (8.5-10.5); Carbon Dioxide 25 mmol/L (22-29); Chloride 100 mmol/L (98-107); Creatinine Clr Calc Pharmacy 72.6752; Globulin 3.3 g/dL (1.3-4.6); Glomerular Filtration Rate 74.1 mL/min (90-130); Glucose 104 mg/dL (65-115); Lipase 23 U/L (13-60); Osmolality Calculated 288 mOsm/kg (285-295); Potassium 4.4 mmol/L (3.5-5.1); Sodium 137 mmol/L (136-145); Total Bilirubin 0.6 mg/dL (0.15-1.2); Total Protein 7.5 g/dL (6.6-8.7)
--- NOTE | 2022-07-26 20:43 | CTR_ITS ---
PROCEDURE INFORMATION: Exam: CT Abdomen And Pelvis Without Contrast Exam date and time: 07/26/2022 9:49 PM Age: 71 years old Clinical indication: Abdominal pain; Right; Prior surgery; Surgery type: Colon resection. Appy. Duran. Lumbar. Patient HX: C/O RT flank pain. TECHNIQUE: Imaging protocol: Computed tomography of the abdomen and pelvis without contrast. Radiation optimization: All CT scans at this facility use at least one of these dose optimization techniques: automated exposure control; mA and/or kV adjustment per patient size (includes targeted exams where dose is matched to clinical indication); or iterative reconstruction. REPORTING DATA: Count of CT and Cardiac NM exams in prior 12 months: This patient has received 3 known CTs and 0 known cardiac nuclear medicine studies in the 12 months prior to the current study. COMPARISON: CT abdomen pelvis w con* [id number] 05/04/2021 2:34 PM RADIATION DOSE METRICS: Total DLP (mGy-cm): 609.65 FINDINGS: Tubes, catheters and devices: Spinal stimulator. Lungs: Emphysematous changes. Right lower lobe atelectasis versus infiltrate. Left lower lobe 3.4 mm pulmonary nodule similar to prior exam, stability suggests a benign etiology. Liver: Normal. No mass. Gallbladder and bile ducts: Common bile duct dilated to 13 mm, negative for definite obstructing lesion, consider further evaluation with MRCP. Possible cholelithiasis. Pancreas: Normal. No ductal dilation. Spleen: Normal. No splenomegaly. Adrenal glands: Normal. No mass. Kidneys and ureters: Normal. No hydronephrosis. Stomach and bowel: Diverticulosis without diverticulitis. Small fat Appendix: No evidence of appendicitis. Intraperitoneal space: Unremarkable. No free air. No significant fluid collection. Vasculature: Unremarkable. No abdominal aortic aneurysm. Lymph nodes: Unremarkable. No enlarged lymph nodes. Urinary bladder: Unremarkable as visualized. Reproductive: Unremarkable as visualized. Bones/joints: Left hip surgical prem seen in place. Lumbar spine surgical hardware. Soft tissues: Unremarkable. CT/CT abdomen pelvis wo con [id number] IMPRESSION: 1. Common bile duct dilated to 13 mm, negative for definite obstructing lesion, consider further evaluation with MRCP. 2. Left hip surgical prem seen in place. 3. Emphysematous changes. 4. Right lower lobe atelectasis versus infiltrate. 5. Possible cholelithiasis. 6. Diverticulosis without diverticulitis. 7. Lumbar spine surgical hardware. 8. Spinal stimulator. 9. Left lower lobe 3.4 mm pulmonary nodule similar to prior exam, stability suggests a benign etiology.
--- NOTE | 2022-07-26 20:44 | W.ED.BACK ---
HPI - Back Pain/Injury General: Chief Complaint: Back Pain/Injury Stated Complaint: Lower R abd pain Time Seen by Provider: 07/26/22 20:41 Source: patient Mode of arrival: ambulatory Limitations: no limitations History of Present Illness: 71-year-old male states he had a fall few weeks ago he states he was not really having pain but states over the last 5 to 6 days has been having right lower back pain. He states that it hurts to ambulate improved with rest states hurts to palpation as well. States the pain is on the right side does not radiate down his leg he denies any bowel or bladder incontinence denies any other injuries Associated symptoms: Deny abdominal pain, chills, dysuria, fever(s), nausea or vomiting Review of Systems Const: Denies: fever(s), chills, body aches or change in appetite Eyes: Denies: blurry vision or eye discomfort ENMT: Denies: throat pain or dental pain Card: Denies: chest pain Resp: Denies: dyspnea GI: Denies: abdominal pain, nausea, vomiting or diarrhea : Denies: dysuria Musc: Reports: back pain; Denies: neck pain Skin/Breast: Denies: rash Neuro: Denies: headache(s) Psych: Denies: depression Rivas/Lymph: Denies: easy bruising All/Imm: Denies: urticaria PFSH ED PFSH: Medical History Anxiety Barretts esophagus Chronic obstructive pulmonary emphysema DDD (degenerative disc disease) Diverticulitis Environmental and seasonal allergies Helicobacter pylori gastritis History of Carreno's esophagus Hypertension Surgical History History of appendectomy History of colonoscopy (05/05/21) 2015 2020 - mild diverticulosis History of esophagogastroduodenoscopy (EGD) (05/05/21) 2015 2020 - esophagitis History of hip fracture Left Hip October 11, 2019 surgery in [place], [place] History of knee surgery History of lumbar surgery History of open sigmoidectomy Family History Other Arthritis Denies family history of Bleeding disorder Social History Smoking and tobacco status: current every day smoker Quit status (tobacco): has quit using tobacco Year quit tobacco: 5 days ago Former quit date comment: 1ppd x 50 years Second hand smoke exposure: Yes Smoking risk assessment/counseling performed?: Yes Alcohol intake: current Alcohol intake frequency: few times a month Desire information about alcohol rehabilitation?: No Counseling given: No Desire information about substance/drug rehabilitation?: No Counseling given: No Caregiver/support person: No Lives independently: Yes Household members: significant other Housing: House Marital status: Life Partner Number of children: 0 Highest education level completed: Associate Degree: Occupational, Technical, Vocational Program service: Yes Current occupational status: retired Pets and animals: Yes Current gender identity: Male Physical Exam Const: COMMON NORMALS: no acute distress, patient oriented x3 and healthy appearing HENMT: COMMON NORMALS: normocephalic and atraumatic HEAD & SCALP: normocephalic and atraumatic Eye: COMMON NORMALS: Equal, round and reactive pupils present and EOMs intact bilaterally PUPIL: Yes Equal, round and reactive pupils present Neck/C-Spine: COMMON NORMALS: full ROM and supple Chest: COMMONS NORMALS: normal inspection of the chest and normal palpation of entire chest wall Resp: COMMON NORMALS: normal respiratory effort, No retractions, No use of accessory muscles and clear to auscultation bilaterally AUSCULTATION: clear to auscultation bilaterally Cardio: COMMON NORMALS: regular rate, regular rhythm and No murmurs present (Cardio) RATE: regular rate RHYTHM: regular rhythm GI: COMMON NORMALS: Normal to inspection, nondistended, normoactive bowel sounds present, Soft to palpation, non-tender and no masses PALPATION: Yes Soft to palpation Back/Pelvis: OTHER: Right lower lumbar tenderness no midline tenderness Extremity: COMMON NORMALS: normal to inspection and full ROM Neuro: COMMON NORMALS: patient oriented x3, moves all extremities and no focal motor deficits Psych: COMMON NORMALS: mental status grossly normal, Normal thought process present and cooperative THOUGHT PROCESS: Normal thought process present Skin: COMMON NORMALS: no rashes or lesions noted and no wounds GENERAL SKIN EXAM: no rashes or lesions noted Course Vital Signs: Vital signs: Vital Signs Temperature 98.0 F 07/26/22 17:54 Pulse Rate 95 07/26/22 21:47 Respiratory Rate 16 07/26/22 21:47 Blood Pressure 142/93 07/26/22 21:47 Pulse Oximetry 92 07/26/22 21:47 Oxygen Delivery Me thod 07/26/22 21:47 MDM - Back Pain/Injury Medical Decision Making Patient presents here with back pains likely muscular in nature he is point tender on exam his blood work is normal did perform a CT scan no signs of any kidney stone he did have a dilated common bile duct but he has no right upper quadrant pain his bilirubin is normal no sign of obstruction I do not believe he needs an MRCP at this point he is stable for discharge she is to follow-up with PCP and return if worsening. Labs 07/26/22 18:23 07/26/22 18:23 Radiology Impressions Abdomen/Pelvis CT 07/26/22 20:43 IMPRESSION: 1. Common bile duct dilated to 13 mm, negative for definite obstructing lesion, consider further evaluation with MRCP. 2. Left hip surgical prem seen in place. 3. Emphysematous changes. 4. Right lower lobe atelectasis versus infiltrate. 5. Possible cholelithiasis. 6. Diverticulosis without diverticulitis. 7. Lumbar spine surgical hardware. 8. Spinal stimulator. 9. Left lower lobe 3.4 mm pulmonary nodule similar to prior exam, stability suggests a benign etiology. Laboratory Results WBC 13.4 10^3/uL (4.0-10.0) H 07/26/22 18: RBC 4.75 10^6/uL (4.1-5.3) 07/26/22 18:23 Hgb 14.3 g/dL (11.7-16.6) 07/26/22 18: Hct 44.3 % (42.0-52.0) 07/26/22 18: MCV 93.3 fl (80-94) 07/26/22 18: MCH 30.1 pg (28.0-34.0) 07/26/22 18: MCHC 32.3 g/dL (30.0-36.0) 07/26/22 18: RDW 13.1 % (12.1-15.1) 07/26/22 18: Plt Count 282 10^3/cmm (130-400) 07/26/22 18: MPV 10.1 fL (7.4-10.4) 07/26/22 18:23 Neut % (Auto) 70.7 % 07/26/22 18:23 Lymph % (Auto) 16.0 % 07/26/22 18:23 [place] % (Auto) 11.1 % 07/26/22 18:23 Eos % (Auto) 0.7 % 07/26/22 18: Baso % (Auto) 0.4 % 07/26/22 18: Neut # (Auto) 9.49 10^3/uL (1.8-7.7) H 07/26/22 18:23 Lymph # (Auto) 2.2 10^3/uL (0.8-4.8) 07/26/22 18: [place] # (Auto) 1.5 10^3/uL (0.2-0.9) H 07/26/22 18: Eos # (Auto) 0.1 10^3/uL (0.0-0.8) 07/26/22 18: Baso # (Auto) 0.1 10^3/uL (0.0-0.1) 07/26/22 18: Nucleated RBC % (auto) 0 % 07/26/22 18: Nucleated RBCs # 0.0 /100WBC 07/26/22 18: Sodium 137 mmol/L (136-145) 07/26/22 18: Potassium 4.4 mmol/L (3.5-5.1) 07/26/22 18: Chloride 100 mmol/L (98-107) 07/26/22 18: Carbon Dioxide 25 mmol/L (22-29) 07/26/22 18: Anion Gap 16.4 (5-19) 07/26/22 18: BUN 22 mg/dL (8-23) 07/26/22 18: Creatinine 1.0 mg/dL (0.7-1.2) 07/26/22 18: GFR Calculation 74.1 mL/min (90-130) L 07/26/22 18: Glucose 104 mg/dL (65-115) 07/26/22 18: Calculated Osmolality 288 mOsm/kg (285-295) 07/26/22 18: Calcium 9.5 mg/dL (8.5-10.5) 07/26/22 18: Total Bilirubin 0.6 mg/dL (0.15-1.2) 07/26/22 18: AST 14 U/L (0-40) 07/26/22 18: ALT 17 U/L (0-41) 07/26/22 18: Alkaline Phosphatase 87 U/L (40-130) 07/26/22 18: Total Protein 7.5 g/dL (6.6-8.7) 07/26/22 18: Albumin 4.2 g/dL (3.5-5.2) 07/26/22 18: Globulin 3.3 g/dL (1.3-4.6) 07/26/22 18: Lipase 23 U/L (13-60) 07/26/22 18: Urine Color Yellow (Yellow) 07/26/22 20:49 Urine Appearance Clear (CLEAR) 07/26/22 20:49 Urine pH 6 (5-7) 07/26/22 20:49 Ur Specific [place] 1.020 (1.005-1.030) 07/26/22 20:49 Urine Protein Trace (Negative) 07/26/22 20:49 Urine Glucose (UA) Norm (Normal) 07/26/22 20:49 Urine Ketones 1+ (Negative) H 07/26/22 20:49 Urine Blood 2+ (Negative) H 07/26/22 20:49 Urine Nitrate Negative (Negative) 07/26/22 20:49 Urine Bilirubin Neg (Negative) 07/26/22 20:49 Urine Urobilinogen Norm mg/dL (Negative) 07/26/22 20:49 Ur Leukocyte Esterase Negative (Negative) 07/26/22 20:49 Urine RBC 0-4 /hpf (0-2) H 07/26/22 20:49 Urine WBC 0-4 /hpf (0-5) H 07/26/22 20:49 Ur Squamous Epith Cells 0-4 /hpf (0-5) H 07/26/22 20:49 Amorphous Sediment Not Reportable 07/26/22 20:49 Urine Bacteria Trace /hpf (NONE) 07/26/22 20:49 Discharge Plan Discharge Patient Disposition: Home Clinical Impression: Low back pain Condition: Stable Prescriptions: New methocarbamol 750 mg tablet 750 mg PO Q6H PRN (Reason: spasms) Qty: 20 0RF Naprosyn 500 mg tablet 500 mg PO BID PRN (Reason: pain) Qty: 20 0RF No Action gabapentin 300 mg capsule 900 mg PO TID diclofenac sodium 25 mg tablet,delayed release (DR/EC) 25 mg PO BID cetirizine [Zyrtec] 10 mg tablet 10 mg PO DAILY PRN (Reason: Allergy Symptoms) tizanidine 2 mg tablet 2 mg PO BID PRN (Reason: Pain) oxycodone 10 mg tablet 10 mg PO Q4H PRN (Reason: Pain) azelastine 137 mcg (0.1 %) aerosol,spray 1 spray intranasal BID Qty: 30 1RF Rx Instructions: administer into each nostril cefdinir 300 mg capsule 300 mg PO BID azithromycin [Zithromax Z-Sukhdeep] 250 mg tablet See Rx Instructions PO .COMPLEX Qty: 6 0RF Rx Instructions: For 250 mg dose pack: take 500 mg today (day 1), then 250 mg for 4 days (days 2-5) PO promethazine-DM 6.25-15 mg/5 mL syrup 5 - 10 ml PO Q6H PRN (Reason: cough) Qty: 200 0RF methylprednisolone acetate [Depo-Medrol] 40 mg/mL suspension 40 mg Infiltration ONCE Qty: 1 0RF omeprazole 40 mg capsule,delayed release(DR/EC) 40 mg PO DAILY (DME) low profile sport carbon fiber insole with heel lift to right See Rx Instructions .Route .MEDSUPPLY Qty: 1 0RF Rx Instructions: As directed by DENI&O prednisone 20 mg tablet 20 mg PO BID Anoro Ellipta 62.5-25 mcg/actuation blister with device 1 inh inhalation DAILY 90 Days Qty: 180 3RF latanoprost 0.005 % Drops 1 drp OPHTHALMIC (EYE) DAILY Rx Instructions: (LEFT EYE) Discharge Orders: Discharge ED (Routine); Ordered 07/26/22 Ordered By: Armida Curtis Referrals: Adela Desai, EMD SPECIAL EDUCATION TEACHER-C [Primary Care Provider] - 1-3 days Discharge Diet: Advance as tolerated Discharge Activity: Resume usual activity Patient Instructions: Acute Low Back Pain (ED) Coding Level of Care Code ED Curriculum Development Manager for Ghislaine Gage
[2022-07-26 21:00] VITALS: BP 155/95; PULSE 91; RESP 20; O2SAT 94
[2022-07-26 21:03] VITALS: RESP 16
[2022-07-26] MEDS: dexamethasone 10 mg/mL INJ IM (21:03)
[2022-07-26] MEDS: morphine 4 mg/mL SDV 1 mL IM (21:03)
[2022-07-26 21:13] LABS: Add Urine Culture? No; Add Urine Microscopic? YES; Bacteria Urine TRACE /hpf; Bilirubin Urine Neg (Negative); Blood Urine 2+ (Negative); Glucose Urine UA Norm (Normal); Ketones Urine 1+ (Negative); Leukocyte Esterase Urine Negative (Negative); Nitrate Urine Negative (Negative); Protein Urine Trace (Negative); RBC Urine 0-4 /hpf (0-2); Squamous Epithelial Cell Urine 0-4 /hpf (0-5); Urine Appearance Clear (CLEAR); Urine Color Yellow (Yellow); Urobilinogen Urine Norm (Negative); WBC Urine 0-4 /hpf (0-5); pH Urine 6 (5-7)
[2022-07-26 21:47] VITALS: BP 142/93; PULSE 95; RESP 16; O2SAT 92
[2022-07-26 23:28] VITALS: BP 140/79; PULSE 93; RESP 18; O2SAT 94
== END 2022-07-26 23:29 | disposition home or self-care (01) ==
PROVIDERS: Emergency Provider Emergency Medicine; PCP Nurse Practitioner
DX: M54.50 Low back pain, unspecified (principal); F17.210 Nicotine dependence, cigarettes, uncomplicated; J44.9 Chronic obstructive pulmonary disease, unspecified; I10 Essential (primary) hypertension
CPT/HCPCS: 74176; 80053; 81001; 83690; 85025; 96372; 99284; J1100; J2270

== ENCOUNTER → 2022-08-03 16:25 | Outpatient (BNVA) | payer MEDICARE, OTHER, SELFPAY | PROVIDERS: PCP Nurse Practitioner; Visit Provider Nurse Practitioner Family | DX: M79.10 Myalgia, unspecified site (principal); M25.50 Pain in unspecified joint; E66.3 Overweight; K29.70 Gastritis, unspecified, without bleeding; B96.81 Helicobacter pylori [H. pylori] as the cause of diseases classified elsewhere; M62.838 Other muscle spasm; G62.9 Polyneuropathy, unspecified; Z83.2 Family history of diseases of the blood and blood-forming organs and certain disorders involving the immune mechanism | CPT/HCPCS: 80053; 80061; 82607; 82728; 85651; 86140; 86200; 86431 ==

== ENCOUNTER 2022-08-04 15:01 | Emergency (ER) | payer OTHER, SELFPAY ==
[2022-08-04 15:05] VITALS: BP 123/73; PULSE 91; RESP 18; TEMP 36.6; O2SAT 94
--- NOTE | 2022-08-04 15:22 | ED_ITS ---
HPI - Extremity Problem General: Chief complaint: Extremity Problem,Nontraumatic Stated complaint: both feet swelling Time Seen by Provider: 08/04/22 15:21 History of Present Illness: Patient presents to the ER with complaints of bilateral lower extremity edema started approximately 2 days ago with the right worse than the left however he did state that it is improved today, he states he has never had this in the past and is not on any diuretics Complaint: extremity swelling Onset (ago): day(s) (2) Pain Consistency: constant Location: left, right and lower extremity Radiation: none Relieving factors: nothing Exacerbating factors: nothing Associated symptoms: Reports no associated symptoms; Deny chest pain, fever(s) or rash Context: recent travel, immobilization, recent surgery/procedure, history of DVT, history of peripheral vascular disease, recent illness and history of gout Review of Systems General: Reports: 10 or more systems reviewed and unremarkable except in HPI and below Const: Denies: fever(s), chills or body aches Eyes: Denies: change in vision ENMT: Denies: throat pain or bleeding gums Card: Reports: edema and swelling of feet/ankles; Denies: chest pain, palpitations or irregular heart rhythm Resp: Reports: dyspnea (chronic); Denies: productive cough, non-productive cough or wheezing GI: Denies: abdominal pain, nausea, vomiting or diarrhea : Denies: flank pain, difficulty urinating, dysuria or urinary frequency Musc: Reports: back pain (hx of t5 disc issue); Denies: neck pain Skin/Breast: Denies: rash, pruritus or erythema Neuro: Denies: headache(s), numbness in extremities or weakness in extremities Psych: Denies: anxiety, depression or mood swings Endo: Denies: polyuria, polydipsia, tired all the time or cold intolerance Rivas/Lymph: Denies: easy bruising, easy bleeding, petechiae or purpura All/Imm: Denies: urticaria, throat swelling, tongue swelling or facial swelling PFSH ED PFSH: Medical History Anxiety Barretts esophagus Chronic obstructive pulmonary emphysema DDD (degenerative disc disease) Diverticulitis Environmental and seasonal allergies Helicobacter pylori gastritis History of Carreno's esophagus Hypertension Surgical History History of appendectomy History of colonoscopy (05/05/21) 2015 2020 - mild diverticulosis History of esophagogastroduodenoscopy (EGD) (05/05/21) 2015 2020 - esophagitis History of hip fracture Left Hip October 11, 2019 surgery in [place], [place] History of knee surgery History of lumbar surgery History of open sigmoidectomy Family History Other Arthritis Denies family history of Bleeding disorder Social History Smoking and tobacco status: current every day smoker Quit status (tobacco): has quit using tobacco Year quit tobacco: 5 days ago Former quit date comment: 1ppd x 50 years Second hand smoke exposure: Yes Smoking risk assessment/counseling performed?: Yes Alcohol intake: current Alcohol intake frequency: few times a month Desire information about alcohol rehabilitation?: No Counseling given: No Desire information about substance/drug rehabilitation?: No Counseling given: No Caregiver/support person: No Lives independently: Yes Household members: significant other Housing: House Marital status: Life Partner Number of children: 0 Highest education level completed: Associate Degree: Occupational, Technical, Vocational Program service: Yes Current occupational status: retired Pets and animals: Yes Current gender identity: Male Physical Exam Const: COMMON NORMALS: no acute distress, average body habitus, patient oriented x3, no limitations, healthy appearing, alert and well nourished HENMT: COMMON NORMALS: normocephalic, atraumatic, hearing grossly normal bilaterally and moist oral mucous membranes HEAD & SCALP: normocephalic and atraumatic Eye: COMMON NORMALS: Equal, round and reactive pupils present, EOMs intact bilaterally and conjunctivae normal CONJUNCTIVA: Yes conjunctivae normal PUPIL: Yes Equal, round and reactive pupils present Neck/C-Spine: COMMON NORMALS: full ROM, no lymphadenopathy, supple, no meningeal signs, no JVD and Thyroid normal THYROID: Thyroid normal Lymph: LYMPHATIC: no lymphadenopathy noted Chest: COMMONS NORMALS: normal inspection of the chest and normal palpation of entire chest wall Resp: COMMON NORMALS: normal respiratory effort, No retractions, No use of accessory muscles and clear to auscultation bilaterally AUSCULTATION: clear to auscultation bilaterally Cardio: COMMON NORMALS: no JVD, regular rate, regular rhythm, S1 normal heart sound present and S2 normal heart sound present RATE: regular rate RHYTHM: regular rhythm HEART SOUNDS: S1 normal heart sound present and S2 normal heart sound present GI: COMMON NORMALS: Normal to inspection, nondistended, normoactive bowel sounds present, Soft to palpation, non-tender, No hepatosplenomegaly present and no masses PALPATION: Yes Soft to palpation and Yes No hepatosplenomegaly present Extremity: GENERAL: Yes normal exam except as noted and Yes edema (Patient does have 2-3+ pitting edema in his right lower extremity and 1-2+ ) Neuro: COMMON NORMALS: patient oriented x3 SENSORIUM/ORIENTATION: Yes alert MENINGEAL SIGNS: Yes no meningeal signs Psych: COMMON NORMALS: mental status grossly normal, Normal thought process present, cooperative, normal affect and speech normal SPEECH: Yes normal speech THOUGHT PROCESS: Normal thought process present Skin: COMMON NORMALS: no rashes or lesions noted, no wounds, turgor normal, no jaundice, no petechiae and no mottling GENERAL SKIN EXAM: no rashes or les ions noted and turgor normal Course Vital Signs: Vital signs: Vital Signs Temperature 97.9 F 08/04/22 15:05 Pulse Rate 91 08/04/22 15:05 Respiratory Rate 16 08/04/22 17:40 Blood Pressure 123/73 08/04/22 15:05 Pulse Oximetry 98 08/04/22 18:29 Oxygen Delivery Me thod 08/04/22 18:29 MDM - Extremity (Nontraumatic) Medical Decision Making Upon history and physical and discussion with the patient as well as lab review and ultrasound review which was all essentially benign and negative for DVT patient will be discharged on a trial of Lasix for the edema and told to follow- up with his primary care physician within 1 week Differential Diagnosis Likely lower extremity edema; Unlikely herpes zoster, gout, cellulitis, superficial thrombophlebitis or deep vein thrombosis of lower extremity Medical Records I reviewed the patient's medical records. Lab Data I reviewed the patient's lab results. 08/04/22 15:44 08/04/22 15:44 Radiology Impressions Chest X-Ray 08/04/22 15:32 Impression: Atherosclerosis and hyperinflation. Venous Duplex 08/04/22 16:59 IMPRESSION: No sonographic evidence of deep vein thrombosis. Laboratory Results WBC 13.2 10^3/uL (4.0-10.0) H 08/04/22 15:44 RBC 4.53 10^6/uL (4.1-5.3) 08/04/22 15:44 Hgb 13.6 g/dL (11.7-16.6) 08/04/22 15:44 Hct 43.7 % (42.0-52.0) 08/04/22 15:44 MCV 96.5 fl (80-94) H 08/04/22 15:44 MCH 30.0 pg (28.0-34.0) 08/04/22 15:44 MCHC 31.1 g/dL (30.0-36.0) 08/04/22 15:44 RDW 13.2 % (12.1-15.1) 08/04/22 15:44 Plt Count 242 10^3/cmm (130-400) 08/04/22 15:44 MPV 10.1 fL (7.4-10.4) 08/04/22 15:44 Neut % (Auto) 66.9 % 08/04/22 15:44 Lymph % (Auto) 19.7 % 08/04/22 15:44 Fisher % (Auto) 9.3 % 08/04/22 15:44 Eos % (Auto) 2.0 % 08/04/22 15:44 Baso % (Auto) 0.5 % 08/04/22 15:44 Neut # (Auto) 8.85 10^3/uL (1.8-7.7) H 08/04/22 15:44 Lymph # (Auto) 2.6 10^3/uL (0.8-4.8) 08/04/22 15:44 Fisher # (Auto) 1.2 10^3/uL (0.2-0.9) H 08/04/22 15:44 Eos # (Auto) 0.3 10^3/uL (0.0-0.8) 08/04/22 15:44 Baso # (Auto) 0.1 10^3/uL (0.0-0.1) 08/04/22 15:44 Nucleated RBC % (auto) 0 % 08/04/22 15:44 Nucleated RBCs # 0.0 /100WBC 08/04/22 15:44 Sodium 138 mmol/L (136-145) 08/04/22 15:44 Potassium 4.3 mmol/L (3.5-5.1) 08/04/22 15:44 Chloride 104 mmol/L (98-107) 08/04/22 15:44 Carbon Dioxide 22 mmol/L (22-29) 08/04/22 15:44 Anion Gap 16.3 (5-19) 08/04/22 15:44 BUN 25 mg/dL (8-23) H 08/04/22 15:44 Creatinine 1.4 mg/dL (0.7-1.2) H 08/04/22 15:44 GFR Calculation 50.2 mL/min (90-130) L 08/04/22 15:44 Glucose 135 mg/dL (65-115) H 08/04/22 15:44 Calculated Osmolality 292 mOsm/kg (285-295) 08/04/22 15:44 Calcium 9.0 mg/dL (8.5-10.5) 08/04/22 15:44 Total Bilirubin 0.2 mg/dL (0.15-1.2) 08/04/22 15:44 AST 14 U/L (0-40) 08/04/22 15:44 ALT 14 U/L (0-41) 08/04/22 15:44 Alkaline Phosphatase 76 U/L (40-130) 08/04/22 15:44 NT-Pro-B Natriuret Pep 237 pg/mL (0-125) H 08/04/22 15:44 Total Protein 6.8 g/dL (6.6-8.7) 08/04/22 15:44 Albumin 3.7 g/dL (3.5-5.2) 08/04/22 15:44 Globulin 3.1 g/dL (1.3-4.6) 08/04/22 15:44 Imaging Data US Vascular: Radiologist's impression: Negative for DVT Discharge Plan Discharge Patient Disposition: Home Clinical Impression: Bilateral edema of lower extremity, Pain in thoracic spine Condition: Stable Prescriptions: New Lasix 20 mg tablet 20 mg PO DAILY Qty: 3 0RF No Action diclofenac sodium 25 mg tablet,delayed release (DR/EC) 25 mg PO BID cetirizine [Zyrtec] 10 mg tablet 10 mg PO DAILY PRN (Reason: Allergy Symptoms) oxycodone 10 mg tablet 10 mg PO Q4H PRN (Reason: Pain) azelastine 137 mcg (0.1 %) aerosol,spray 1 spray intranasal BID Qty: 30 1RF Rx Instructions: administer into each nostril promethazine-DM 6.25-15 mg/5 mL syrup 5 - 10 ml PO Q6H PRN (Reason: cough) Qty: 200 0RF omeprazole 40 mg capsule,delayed release(DR/EC) 40 mg PO DAILY (DME) low profile sport carbon fiber insole with heel lift to right See Rx Instructions .Route .MEDSUPPLY Qty: 1 0RF Rx Instructions: As directed by DENI&O prednisone 20 mg tablet 20 mg PO BID cyclobenzaprine 10 mg tablet 10 mg PO TID PRN (Reason: muscle spasm) Qty: 30 0RF gabapentin 300 mg capsule 1,200 mg PO TID 90 Days Qty: 1080 0RF Anoro Ellipta 62.5-25 mcg/actuation blister with device 1 inh inhalation DAILY 90 Days Qty: 180 3RF latanoprost 0.005 % Drops 1 drp OPHTHALMIC (EYE) DAILY Rx Instructions: (LEFT EYE) Discharge Orders: Discharge ED (Routine); Ordered 08/04/22 Ordered By: Caleb Whitlock Referrals: Adela Desai, FINANCIAL ADMINISTRATOR-C [Primary Care Provider] - 1 week Discharge Diet: Low Salt Discharge Activity: Resume usual activity Coding Level of Care Code ED Revenue Enforcement Agent for Ghislaine Gage
--- NOTE | 2022-08-04 15:32 | XR_ITS ---
WS: [id number] Chest 2 views, 08/04/2022 Clinical Data: dyspnea, lower ext edema Comparison: Two-view chest, 11/02/2020 Findings: No nodules, masses or effusions are seen. The heart is normal. The pulmonary vascularity is not increased. No pneumonia or pneumothorax is seen. The aortic arch and descending thoracic aorta s how tortuosity. The diaphragms are flattened. There is an epidural stimulator which ends in the mid t horacic region. There is kyphoplasty cement in the L1 vertebral body. XR/XR chest 2V* [id number] Impression: Atherosclerosis and hyperinflation.
[2022-08-04 15:55] LABS: Basophils # 0.1 10^3/uL (0.0-0.1); Basophils % 0.5 %; Eosinophils # 0.3 10^3/uL (0.0-0.8); Hematocrit 43.7 % (42.0-52.0); Hemoglobin 13.6 g/dL (11.7-16.6); Lymphocytes # 2.6 10^3/uL (0.8-4.8); Lymphocytes % 19.7 %; Mean Corpuscular HGB Conc 31.1 g/dL (30.0-36.0); Mean Corpuscular Volume 96.5 fl (80-94); Mean Platelet Volume 10.1 fL (7.4-10.4); Monocytes # 1.2 10^3/uL (0.2-0.9); Monocytes % 9.3 %; Neutrophils # 8.85 10^3/uL (1.8-7.7); Neutrophils % 66.9 %; Nucleated Red Blood Cells % 0 %; Platelet Count 242 10^3/cmm (130-400); Red Blood Count 4.53 10^6/uL (4.1-5.3); Red Cell Distribution Width 13.2 % (12.1-15.1); White Blood Count 13.2 10^3/uL (4.0-10.0)
[2022-08-04 16:19] LABS: Alanine Aminotransferase 14 U/L (0-41); Albumin Level 3.7 g/dL (3.5-5.2); Alkaline Phosphatase 76 U/L (40-130); Anion Gap 16.3 (5-19); Aspartate Amino Transferase 14 U/L (0-40); Blood Urea Nitrogen 25 mg/dL (8-23); Carbon Dioxide 22 mmol/L (22-29); Chloride 104 mmol/L (98-107); Globulin 3.1 g/dL (1.3-4.6); Glomerular Filtration Rate 50.2 mL/min (90-130); Glucose 135 mg/dL (65-115); NT Pro B Type Natriuretic Pept 237 pg/mL (0-125); Osmolality Calculated 292 mOsm/kg (285-295); Potassium 4.3 mmol/L (3.5-5.1); Sodium 138 mmol/L (136-145); Total Bilirubin 0.2 mg/dL (0.15-1.2); Total Protein 6.8 g/dL (6.6-8.7)
--- NOTE | 2022-08-04 16:59 | USR_ITS ---
PROCEDURE INFORMATION: Exam: US Duplex Lower Extremity Veins, Bilateral Exam date and time: 08/04/2022 6:02 PM Age: 71 years old Clinical indication: Edema, localized; Lower extremity, bilateral; Additional info: Ble swelling, right much greater than left TECHNIQUE: Imaging protocol: Real-time duplex ultrasound of the bilateral extremities with 2-D cintron scale, color Doppler flow and spectral waveform analysis including responses to compression and other maneuvers (when performed) with image documentation. Complete exam focused on the lower extremity veins. COMPARISON: CT abdomen pelvis wo con [id number] 07/26/2022 9:49 PM FINDINGS: Right deep veins: Unremarkable. The common femoral, femoral, proximal profunda femoral, popliteal, posterior tibial and peroneal veins are patent without thrombus. Normal Doppler waveforms. Normal compressibility and/or augmentation response. Right superficial veins: Saphenofemoral junction is patent without thrombus. Left deep veins: Unremarkable. The common femoral, femoral, proximal profunda femoral, popliteal, posterior tibial and peroneal veins are patent without thrombus. Normal Doppler waveforms. Normal compressibility and/or augmentation response. Left superficial veins: Saphenofemoral junction is patent without thrombus. Soft tissues: Unremarkable. US/[place] [id number] IMPRESSION: No sonographic evidence of deep vein thrombosis.
[2022-08-04 17:13] VITALS: O2SAT 98
[2022-08-04 17:40] VITALS: RESP 16
[2022-08-04] MEDS: oxyCODONE-APAP 10-325 mg Tablet 1 TAB PO (17:40)
[2022-08-04 18:29] VITALS: O2SAT 98
[2022-08-04] MEDS: FUROsemide 40 mg Tablet PO (18:55)
== END 2022-08-04 19:28 | disposition home or self-care (01) ==
PROVIDERS: Emergency Provider Emergency Medicine; PCP Nurse Practitioner
DX: R60.0 Localized edema (principal); M54.6 Pain in thoracic spine; I10 Essential (primary) hypertension; J44.9 Chronic obstructive pulmonary disease, unspecified; Z87.891 Personal history of nicotine dependence
CPT/HCPCS: 36415; 71046; 80053; 83880; 85025; 93970; 99285

== ENCOUNTER → 2022-08-10 08:48 | Outpatient (BNVA) | payer OTHER, MEDICARE, SELFPAY | PROVIDERS: PCP Nurse Practitioner; Referring Provider Nurse Practitioner Family; Visit Provider Orthopaedic Surgery | DX: S22.050A Wedge compression fracture of T5-T6 vertebra, initial encounter for closed fracture (principal); W19.XXXA Unspecified fall, initial encounter; Z96.82 Presence of neurostimulator | CPT/HCPCS: 72070; 99204 ==

== ENCOUNTER 2022-08-11 08:09 | Day surgery (SDC) | payer OTHER, SELFPAY ==
[2022-08-10 15:28] VITALS: BMI 29.2
[2022-08-11] VITALS (14 sets, daily range): BP systolic 105–162; BP diastolic 82–97; PULSE 88–101; RESP 18; TEMP 36.2; O2SAT 90–100
--- NOTE | 2022-08-11 | SC_ITS ---
WS: [id number] INTRAOPERATIVE TECHNIQUE: 4 Spot fluoroscopic images for intraoperative purposes. FLUOROSCOPY TIME: 42.9 seconds CLINICAL INFORMATION: OR PICS COMPARISON: None. FINDINGS: Intraoperative fluoroscopy used for thoracic kyphoplasty. Moderate thoracic kyphosis. Osteopenia. Chr onic anterior wedging in the mid thoracic spine. SC/C-arm FL for Kyphoplasty IMPRESSION: Images obtained for intraoperative purposes.
[2022-08-11] MEDS: sodium chloride 0.9% 1,000 ML 100 ML IV (08:45)
--- NOTE | 2022-08-11 09:16 | W.PM.OPSUD ---
Surgery/Procedure H&P Update DATE OF PROCEDURE: August 11, 2022 DATE H&P PERFORMED: 08/10/22 H&P UPDATE INFORMATION: I have reviewed H&P completed within last 30 days, I have examined patient prior to procedure and No changes to prior documentation PREOP DIAGNOSIS: Thoracic compression fracture PLANNED PROCEDURE: Operation Date: 08/11/22 09:40 Proposed Procedures p Kyphoplasty: 03341,22.000A T5(Not Applicable) - Anam Henao DO
[2022-08-11] MEDS: HYDROmorphone 1 mg/mL INJ 1 mL 0.5 MG IVP ×2 (09:20→10:57)
[2022-08-11] MEDS: ondansetron 2 mg/ML SDV 2 mL 4 MG IVP (09:33)
[2022-08-11] MEDS: ceFAZolin 2,000 MG in sodium chloride 0.9% (plus) 50 ML 100 MG IV (09:40)
[2022-08-11] MEDS: lidocaine-epi 1% 20 mL INJ INJECTION (10:11)
[2022-08-11] MEDS: iohexol 350 mg/mL 100 mL Btl 20 ML XX (10:20)
--- NOTE | 2022-08-11 10:37 | XR_ITS ---
WS: [id number] INTRAOPERATIVE TECHNIQUE: 4 Spot fluoroscopic images for intraoperative purposes. FLUOROSCOPY TIME: 42.9 seconds CLINICAL INFORMATION: OR PICS COMPARISON: None. FINDINGS: Intraoperative fluoroscopy used for thoracic kyphoplasty. Moderate thoracic kyphosis. Osteopenia. Chr onic anterior wedging in the mid thoracic spine.
[2022-08-11] MEDS: fentaNYL 50 mcg/mL INJ 2mL IVP (10:43)
--- NOTE | 2022-08-11 10:50 | PM.OP ---
Operative Report Date of procedure: August 11, 2022 Pre-op diagnosis: Preop Diagnosis Thoracic wedge osteoporotic traumatic compression fracture Post-op diagnosis: same Procedure done: 1. T5 Kyphoplasty Surgeon: Anam Henao Web Services Developer: Gigi Vernon Web Services Developer: The ophthalmology surgical technician, Gigi Vernon, PAC was needed for his expertise fractures. He was important and necessary throughout the procedure to complete in a safe and timely manner. He assisted with patient positioning prepping and draping. Estimated blood loss (mL): 5 Procedure: 1. T5 Kyphoplasty Patient brought the op suite after undergoing anesthesia was placed in the prone position. Impingement well-padded. The T5 level was identified using by planar fluoroscopy. Patient was then prepped and draped normal sterile fashion. Skin incision made over the T5 pedicle on the left side. The awl was then inserted into the vertebrae. Followed by the drill followed by the balloon this is all done under AP and lateral fluoroscopy. Balloon was deflated and then cement was used to fill the void. Vertebrae had good fill AP lateral fluoroscopy ensured that the cement was in good position and filled the vertebrae. Wounds irrigated and closed with nylon suture.
--- NOTE | 2022-08-11 11:09 | ANES.PREANE2 ---
Pre-Anesthetic Assessment Height/Weight: Height 1.73 m Weight 87.09 kg Temp Pulse Resp BP Pulse Ox O2 Del Method O2 Flow Rate 97.2 F L 98 18 105/82 94 6 08/11/22 10:37 08/11/22 10:50 08/11/22 10:57 08/11/22 10:50 08/11/22 10:57 08/11/22 10:50 08/11/22 10:40 Preop Diagnosis: Thoracic compression fracture Operation Date: 08/11/22 09:40 Proposed Procedures p Kyphoplasty: 06634,22.000A T5(Not Applicable) - Anam Henao, DO Familial anesthetic complications: none Was Beta Raiza taken within 24 hours: N/A Was Clonidine taken within 24 hours: N/A Last intake: Intake Last Liquid Date 08/17/22 Last Liquid Time 21:00 Last Solid Date 08/10/22 Last Solid Time 21:00 Social No alcohol and No tobacco Exam alert, oriented x 3, clear to auscultation bilaterally and regular rate & rhythm Airway Submandibular: within normal limits Cervical ROM: within normal limits Mallampati: Class II Dentition: chipped Pulmonary Chronic Obstructive Pulmonary Disease and Sleep Apnea CV/HEM Hypertension GI Gastroesophageal Reflux Disease Metabolic Chronic steroids Musc/skel Lower Back Pain and Osteoarthritis/DJD Compression frx Neuropsych Neuropathy Anesthetic Plan ASA status: 3 Anesthesia: General Medications/Allergies Home Medications Medication Instructions Recorded Confirmed Last Taken Type latanoprost 0.005 % eye drops 1 drp ophthalmic (eye) DAILY 01/08/20 08/10/22 08/02/22 History cetirizine 10 mg tablet (Zyrtec) 10 mg PO DAILY 07/21/20 08/10/22 08/08/22 History umeclidinium 62.5 mcg-vilanterol 1 inh inhalation DAILY 90 days 12/14/20 08/10/22 08/10/22 Rx 25 mcg/actuation powdr for #180 ea inhalation (Anoro Ellipta) oxycodone 10 mg tablet 10 mg PO Q4H PRN Pain 03/15/21 08/10/22 08/11/22 06:00 History low profile sport carbon fiber #1 ea 01/04/22 08/10/22 Unknown Rx insole with heel lift to right diclofenac sodium 25 mg 25 mg PO BID 02/20/22 08/10/2208/10/23 History tablet,delayed release omeprazole 40 mg capsule,delayed 40 mg PO DAILY 02/20/22 08/10/22 08/10/22 History release prednisone 20 mg tablet 20 mg PO BID 05/16/22 08/10/22 08/10/22 History gabapentin 300 mg capsule 1,200 mg PO TID 90 days #1,080 caps 08/03/22 08/10/22 08/11/22 06:00 Rx azelastine 137 mcg (0.1 %) nasal 1 spray intranasal BID PRN 08/10/22 08/11/22 08/01/22 History spray aerosol allergies tizanidine 4 mg capsule 4 mg PO TID PRN muscle spasms 08/10/22 08/11/22 08/10/22 History oxycodone 10 mg tablet 10 - 20 mg PO Q4H PRN pain 7 days 08/11/22 Unknown Rx #40 tabs Allergies Allergy/AdvReac Type Severity Reaction Status Date / Time lisinopril Allergy Unknown Verified 08/11/22 08:22 celecoxib [From Celebrex] AdvReac GI upset Verified 08/11/22 08:22 Current Medications Generic Name Dose Route Start Last Admin Trade Name Freq PRN Reason Stop Dose Admin Fentanyl 50 mcg 08/11/22 08:15 08/11/22 10:43 Fentanyl 50 Mcg/Ml Inj 2ml IVP 08/12/22 08:15 50 mcg Q5M PRN Administration Pain level 1-5 PACU Phase I Hydromorphone HCl 0.5 mg 08/11/22 08:15 08/11/22 09:20 Hydromorphone 1 Mg/Ml Inj 1 Ml IVP 0.5 mg ONCE PRN Administration Phase II postop pain Hydromorphone HCl 0.5 mg 08/11/22 08:15 08/11/22 10:57 Hydromorphone 1 Mg/Ml Inj 1 Ml IVP 08/12/22 08:15 0.5 mg Q10M PRN Administration Pain level 6-10 PACU Phase I Sodium Chloride 1,000 mls @ 100 mls/hr 08/11/22 08:15 08/11/22 08:45 Sodium Chloride 0.9% IV 08/12/22 08:14 100 mls/hr .Q10H ABRAHAM Administration Ondansetron HCl 4 mg 08/11/22 08:15 08/11/22 09:33 Ondansetron 2 Mg/Ml Sdv 2 Ml IVP 4 mg ONCE PRN Administration NAUSEA AND VOMITING PFSH Anesthesia Medical History Anxiety Barretts esophagus Chronic obstructive pulmonary emphysema DDD (degenerative disc disease) Diverticulitis Environmental and seasonal allergies Helicobacter pylori gastritis History of Carreno's esophagus Hypertension Surgical History History of appendectomy History of colonoscopy (05/05/21) 2015 2020 - mild diverticulosis History of esophagogastroduodenoscopy (EGD) (05/05/21) 2015 2020 - esophagitis History of hip fracture Left Hip October 11, 2019 surgery in [place], [place] History of knee surgery History of lumbar surgery History of open sigmoidectomy Family History Other Arthritis Denies family history of Bleeding disorder Social History Smoking and tobacco status: current every day smoker Quit status (tobacco): has quit using tobacco Year quit tobacco: 5 days ago Former quit date comment: 1ppd x 50 years Second hand smoke exposure: Yes Smoking risk assessment/counseling performed?: Yes Alcohol intake: current Alcohol intake frequency: few times a month Desire information about alcohol rehabilitation?: No Counseling given: No Desire information about substance/drug rehabilitation?: No Counseling given: No Caregiver/support person: No Lives independently: Yes Household members: significant other Housing: House Marital status: Life Partner Number of children: 0 Highest education level completed: Associate Degree: Occupational, Technical, Vocational Program service: Yes Current occupational status: retired Pets and animals: Yes Current gender identity: Male Data Anesthesia Cardiac Studies: No Data to Display
[2022-08-11] MEDS: oxyCODONE-APAP 10-325 mg Tablet 1 TAB PO (11:25)
--- NOTE | 2022-08-11 14:12 | ANE.PACU2 ---
Inpatient post-anesthesia follow up: Airway intact: Yes Vital signs: Temperature 97.1 F Pulse Rate 95 Respiratory Rate 18 Blood Pressure 134/90 Pulse Oximetry 90 Oxygen Delivery Me thod Room Air Oxygen Flow Rate 6 Fraction of Inspir ed Oxygen Hydration adequate: Yes Nausea and vomiting: No Pain level: 4 Mental status: Baseline
== END 2022-08-11 11:51 | disposition home or self-care (01) ==
PROVIDERS: PCP Nurse Practitioner Family; Visit Provider Orthopaedic Surgery
PROC: (CPT 22513; principal; 2022-08-11 09:30)
DX: S22.050A Wedge compression fracture of T5-T6 vertebra, initial encounter for closed fracture (principal); W19.XXXA Unspecified fall, initial encounter; F41.9 Anxiety disorder, unspecified; I10 Essential (primary) hypertension; F17.210 Nicotine dependence, cigarettes, uncomplicated; J44.9 Chronic obstructive pulmonary disease, unspecified; G47.30 Sleep apnea, unspecified; Z79.52 Long term (current) use of systemic steroids; K21.9 Gastro-esophageal reflux disease without esophagitis
CPT/HCPCS: 22513; 72020; 76000; J0690; J1100; J1170; J2405; J2704; J2710; J3010; J3490; J7030; Q9967

== ENCOUNTER → 2022-08-16 11:31 | Outpatient (BNVA) | payer MEDICARE, OTHER, SELFPAY | PROVIDERS: PCP Nurse Practitioner Family; Visit Provider Internal Medicine Rheumatology | DX: H16.001 Unspecified corneal ulcer, right eye (principal); Z79.899 Other long term (current) drug therapy; Z11.59 Encounter for screening for other viral diseases; Z79.52 Long term (current) use of systemic steroids | CPT/HCPCS: 36415; 80076; 82306; 82565; 84520; 85025; 86140; 86480; 86704; 86803; 86812; 87340; 99204 ==

== ENCOUNTER → 2022-08-18 09:48 | Outpatient (BNVA) | payer OTHER, SELFPAY | PROVIDERS: PCP Nurse Practitioner; Visit Provider Internal Medicine Pulmonary Disease | DX: J43.9 Emphysema, unspecified (principal); J02.9 Acute pharyngitis, unspecified; R91.8 Other nonspecific abnormal finding of lung field; G47.34 Idiopathic sleep related nonobstructive alveolar hypoventilation; G47.33 Obstructive sleep apnea (adult) (pediatric); F17.210 Nicotine dependence, cigarettes, uncomplicated; K21.9 Gastro-esophageal reflux disease without esophagitis; Z99.81 Dependence on supplemental oxygen | CPT/HCPCS: 99214 ==

== ENCOUNTER → 2022-08-29 10:43 | Outpatient (BNVA) | payer MEDICARE, OTHER, SELFPAY | PROVIDERS: PCP Nurse Practitioner; Visit Provider Orthopaedic Surgery | DX: S22.050D Wedge compression fracture of T5-T6 vertebra, subsequent encounter for fracture with routine healing (principal); X58.XXXD Exposure to other specified factors, subsequent encounter | CPT/HCPCS: 99024 ==

== ENCOUNTER → 2022-08-29 13:25 | Outpatient (BNVA) | payer MEDICARE, OTHER, SELFPAY | PROVIDERS: PCP Nurse Practitioner; Visit Provider Nurse Practitioner Family | DX: R05.9 Cough, unspecified (principal) | CPT/HCPCS: 71046 ==

== ENCOUNTER 2022-08-31 15:32 | Outpatient (CLI) | payer OTHER, SELFPAY ==
[2022-08-31 15:58] LABS: Basophils # 0.1 10^3/uL (0.0-0.1); Basophils % 0.3 %; Eosinophils % 0.1 %; Hematocrit 43.7 % (42.0-52.0); Hemoglobin 13.9 g/dL (11.7-16.6); Lymphocytes # 1.5 10^3/uL (0.8-4.8); Lymphocytes % 8.1 %; Mean Corpuscular HGB Conc 31.8 g/dL (30.0-36.0); Mean Corpuscular Hemoglobin 30.2 pg (28.0-34.0); Mean Corpuscular Volume 94.8 fl (80-94); Mean Platelet Volume 10.1 fL (7.4-10.4); Monocytes # 1.1 10^3/uL (0.2-0.9); Monocytes % 5.8 %; Neutrophils # 15.58 10^3/uL (1.8-7.7); Neutrophils % 84.2 %; Nucleated Red Blood Cells % 0 %; Platelet Count 254 10^3/cmm (130-400); Red Blood Count 4.61 10^6/uL (4.1-5.3); Red Cell Distribution Width 13.8 % (12.1-15.1); White Blood Count 18.5 10^3/uL (4.0-10.0)
[2022-08-31 16:41] LABS: Alanine Aminotransferase 22 U/L (0-41); Albumin Level 3.9 g/dL (3.5-5.2); Alkaline Phosphatase 73 U/L (40-130); Aspartate Amino Transferase 15 U/L (0-40); C Reactive Protein 4.5 mg/L (0.0-4.9); Globulin 2.7 g/dL (1.3-4.6); Glomerular Filtration Rate 74.1 mL/min (90-130); Total Bilirubin 0.2 mg/dL (0.15-1.2); Total Protein 6.6 g/dL (6.6-8.7)
== END 2022-08-31 15:33 | disposition home or self-care (01) ==
LOC: LAB 15:39
PROVIDERS: PCP Nurse Practitioner Family; Visit Provider Internal Medicine Rheumatology
DX: Z79.899 Other long term (current) drug therapy (principal)
CPT/HCPCS: 36415; 80076; 82565; 85025; 86140

== ENCOUNTER → 2022-09-08 11:10 | Outpatient (BNVA) | payer OTHER, SELFPAY | PROVIDERS: PCP Nurse Practitioner Family; Visit Provider Otolaryngology | DX: R49.0 Dysphonia (principal); R05.3 Chronic cough; B37.89 Other sites of candidiasis; F17.210 Nicotine dependence, cigarettes, uncomplicated; K21.9 Gastro-esophageal reflux disease without esophagitis | CPT/HCPCS: 31575; 99204 ==

== ENCOUNTER 2022-09-08 12:13 | Emergency (ER) | payer OTHER, SELFPAY ==
[2022-09-08 12:14] VITALS: BP 168/106; PULSE 88; RESP 14; TEMP 36.7; O2SAT 96; BMI 28.8
--- NOTE | 2022-09-08 12:14 | XR_ITS ---
WS: [id number] EXAMINATION: XR chest 1V portable [id number] REASON FOR EXAM: chest pain COMPARISON: 08/29/2022 ORDER DATE: 09/08/2022 12:14 PM TECHNIQUE: A single, portable frontal chest x-ray was obtained. X-RAY FINDINGS: The lungs are clear. There are chronic lung changes. Pleural spaces are clear. No pleural effusions o r pneumothorax. Cardiomediastinal silhouette is normal. No evidence for pulmonary edema. Soft tissue and osseous structures are unremarkable except for kyphoplasty changes in the lower thora cic vertebra. Epidural spinal stimulator noted in the midthoracic region XR/XR chest 1V portable [id number] IMPRESSION: Unremarkable frontal portable chest x-ray.
--- NOTE | 2022-09-08 12:15 | ECG_ITS ---
[facility] Test Date: 2022-09-08 Pat Name: Denia Lewis Department: Room: Gender: Male Home Care Consultant: : 1950 Requested By: Jesse Duffy Order Number: [id number] Jacquelyn MD: Rob Wolfe M.D. Measurements Intervals [place] Rate: 97 P: 57 ID: [id number] QRS: 35 QRSD: 70 T: -17 QT: 302 QTc: 385 Interpretive Statements SINUS RHYTHM NONSPECIFIC T-WAVE ABNORMALITY No previous ECG available for comparison Electronically Signed On 09-08-2022 13:49:51 CDT by Rob Wolfe M.D. [id number]
--- NOTE | 2022-09-08 12:24 | ED_ITS ---
HPI - Chest Pain General: Chief Complaint: Chest Pain Stated Complaint: CP Time Seen by Provider: 09/08/22 12:14 Source: patient Mode of arrival: wheelchair History of Present Illness: 71-year-old male presents emergency room with complaint of chest pain he was at a doctor's visit in the medical office building began having chest discomfort while at rest has not previously had episodes like this. He denies any fever sweats or chills denies any recent cough or cold symptoms. No previous cardiac evaluation recently. Several years ago cannot remember exactly how long he had a stress test which was purportedly negative. He does not have any radiation of the pain into his neck arms or back he did feel slightly short of breath. He has chronic back pain but that remains unchanged. He is not having any pain at this time he was initially seen. MD complaint: chest pain Onset (ago): minute(s) Timing of current episode: episodic Prior episodes: No Onset: during rest Pain location: substernal and left chest Pain radiation: none Severity: moderate Quality: aching and heaviness Relieving factors: nothing Exacerbating factors: nothing Associated symptoms: Deny abdominal pain, diaphoresis, dyspnea, fever(s), leg edema, nausea, palpitations, sense of impending doom, syncope or vomiting Treatment prior to arrival: none Review of Systems Const: Denies: fever(s), chills, fatigue, malaise or diaphoresis ENMT: Denies: throat pain, ear or mastoid pain, nasal discharge or nasal congestion Card: Reports: chest pain; Denies: palpitations, irregular heart rhythm, edema, swelling of feet/ankles or syncope Resp: Denies: dyspnea, productive cough or non-productive cough GI: Denies: abdominal pain, nausea or vomiting : Denies: flank pain, dysuria, urinary frequency or urinary urgency Skin/Breast: Denies: rash or pruritus PFSH ED PFSH: Medical History Anxiety Barretts esophagus Chronic obstructive pulmonary emphysema Chronic steroid use Corneal ulcer of right eye DDD (degenerative disc disease) Diverticulitis Environmental and seasonal allergies Helicobacter pylori gastritis High risk medication use History of Carreno's esophagus Hypertension Immunization counseling Surgical History History of appendectomy History of colonoscopy (12/09/21) 2015 2020 - mild diverticulosis History of esophagogastroduodenoscopy (EGD) (05/05/21) 2015 2020 - esophagitis History of hip fracture Left Hip October 11, 2019 surgery in [place], [place] History of knee surgery History of lumbar surgery History of open sigmoidectomy Family History Other Arthritis Rheumatoid arthritis Denies family history of Bleeding disorder Social History Smoking and tobacco status: current every day smoker cigarettes Packs smoked per day: 0.5 Quit status (tobacco): has quit using tobacco Year quit tobacco: 5 days ago Former quit date comment: 1ppd x 50 years Second hand smoke exposure: Yes Smoking risk assessment/counseling performed?: Yes Alcohol intake: current Alcohol intake frequency: few times a month Desire information about alcohol rehabilitation?: No Counseling given: No Desire information about substance/drug rehabilitation?: No Counseling given: No Caregiver/support person: No Lives independently: Yes Household members: significant other Housing: House Marital status: Life Partner Number of children: 0 Highest education level completed: Associate Degree: Occupational, Technical, Vocational Program service: Yes Current occupational status: retired Pets and animals: Yes Current gender identity: Male Physical Exam Const: GENERAL APPEARANCE: cooperative and comfortable ORIEN TATION/CONSCIOUSNESS: Yes awake, Yes oriented to person, Yes oriented to place and Yes oriented to time HENMT: COMMON NORMALS: normocephalic, atraumatic and hearing grossly normal bilaterally HEAD & SCALP: normocephalic and atraumatic Resp: COMMON NORMALS: normal respiratory effort, No retractions, No use of accessory muscles and clear to auscultation bilaterally AUSCULTATION: clear to auscultation bilaterally Cardio: COMMON NORMALS: regular rate, regular rhythm and No murmurs present (Cardio) RATE: regular rate RHYTHM: regular rhythm GI: COMMON NORMALS: Soft to palpation and No hepatosplenomegaly present AUSCULTATION: Yes normoactive bowel sounds PALPATION: Yes Soft to palpation, No Tenderness to palpation present (GI), No Guarding due to palpation present (GI) and Yes No hepatosplenomegaly present Extremity: COMMON NORMALS: normal to inspection, capillary refill normal, no clubbing, cyanosis or edema, no calf tenderness and no pedal edema Neuro: SENSORIUM/ORIENTATION: Yes oriented to person, Yes oriented to place and Yes oriented to time Skin: COMMON NORMALS: no rashes or lesions noted GENERAL SKIN EXAM: no rashes or lesions noted Course Vital Signs: Vital signs: Vital Signs Temperature 98.1 F 09/08/22 12:14 Pulse Rate 89 09/08/22 13:25 Respiratory Rate 14 09/08/22 12:14 Blood Pressure 151/103 09/08/22 13:25 Pulse Oximetry 93 09/08/22 13:25 Oxygen Delivery Me thod Room Air 09/08/22 12:39 MDM - Chest Pain Medical Decision Making Initially patient presented for chest pain. He reported some back pain but that it was chronic and unchanged. We have working him up for causes of chest pain. He then told the nurses main reason was for his back pain. I went back to talk to the patient he admitted been there for a long time but it has worsened recently and he wanted us to further evaluate he has seen orthopedics in the past and he has pending work-up there. He has not had any change in function. No recent trauma. He states the back pain is worse when he takes a deep breath. He was nearly due for his second troponin and he had decided to leave AM. It does reviewed his old chart and found that he had a wedge compression of T5 and T6 from a visit earlier this month with Dr. Henao discussed with him that was likely the cause of his pain and should continue to follow-up with Dr. Henao. Encouraged him to allow us to complete the chest pain work-up however patient refused and demanded to be discharged where he would leave [place]. Patient did ultimately leave. He is encouraged to return at any point if he has any worsening or change of symptoms, or if he wishes to complete the work-up that we had begun. Medical Records I reviewed the patient's medical records. Lab Data I reviewed the patient's lab results. 09/08/22 12:21 09/08/22 12:21 Radiology Impressions Chest X-Ray 09/08/22 12:14 IMPRESSION: Unremarkable frontal portable chest x-ray. Laboratory Results WBC 12.2 10^3/uL (4.0-10.0) H 09/08/22 12:21 RBC 4.78 10^6/uL (4.1-5.3) 09/08/22 12:21 Hgb 14.5 g/dL (11.7-16.6) 09/08/22 12:21 Hct 45.6 % (42.0-52.0) 09/08/22 12:21 MCV 95.4 fl (80-94) H 09/08/22 12:21 MCH 30.3 pg (28.0-34.0) 09/08/22 12:21 MCHC 31.8 g/dL (30.0-36.0) 09/08/22 12:21 RDW 13.9 % (12.1-15.1) 09/08/22 12: Plt Count 246 10^3/cmm (130-400) 09/08/22 12:21 MPV 9.7 fL (7.4-10.4) 09/08/22 12:21 Neut % (Auto) 88.5 % 09/08/22 12: Lymph % (Auto) 6.5 % 09/08/22 12:21 [place] % (Auto) 3.3 % 09/08/22 12:21 Eos % (Auto) 0.2 % 09/08/22 12: Baso % (Auto) 0.2 % 09/08/22 12: Neut # (Auto) 10.79 10^3/uL (1.8-7.7) H 09/08/22 12:21 Lymph # (Auto) 0.8 10^3/uL (0.8-4.8) 09/08/22 12:21 [place] # (Auto) 0.4 10^3/uL (0.2-0.9) 09/08/22 12:21 Eos # (Auto) 0.0 10^3/uL (0.0-0.8) 09/08/22 12:21 Baso # (Auto) 0.0 10^3/uL (0.0-0.1) 09/08/22 12:21 Nucleated RBC % (auto) 0 % 09/08/22 12:21 Nucleated RBCs # 0.0 /100WBC 09/08/22 12:21 Sodium 138 mmol/L (136-145) 04/14/23 12:21 Potassium 4.8 mmol/L (3.5-5.1) 09/08/22 12:21 Chloride 100 mmol/L (98-107) 09/08/22 12:21 Carbon Dioxide 26 mmol/L (22-29) 09/08/22 12:21 Anion Gap 16.8 (5-19) 09/08/22 12:21 BUN 16 mg/dL (8-23) 09/08/22 12:21 Creatinine 1.2 mg/dL (0.7-1.2) 09/08/22 12:21 GFR Calculation 60.0 mL/min (90-130) L 09/08/22 12:21 Glucose 138 mg/dL (65-115) H 09/08/22 12:21 Calculated Osmolality 289 mOsm/kg (285-295) 09/08/22 12:21 Calcium 9.5 mg/dL (8.5-10.5) 09/08/22 12:21 Total Bilirubin 0.3 mg/dL (0.15-1.2) 09/08/22 12:21 AST 14 U/L (0-40) 09/08/22 12:21 ALT 19 U/L (0-41) 09/08/22 12:21 Alkaline Phosphatase 72 U/L (40-130) 09/08/22 12:21 Troponin T Baseline 18 ng/L (0-15) H 09/08/22 12:21 Total Protein 7.4 g/dL (6.6-8.7) 09/08/22 12:21 Albumin 3.9 g/dL (3.5-5.2) 09/08/22 12:21 Globulin 3.5 g/dL (1.3-4.6) 09/08/22 12:21 Discharge Plan Discharge Patient Disposition: Left Against Medical Advice Clinical Impression: Chest pain Condition: Stable Prescriptions: No Action diclofenac sodium 25 mg tablet,delayed release (DR/EC) 25 mg PO BID cetirizine [Zyrtec] 10 mg tablet 10 mg PO DAILY oxycodone 10 mg tablet 10 mg PO Q4H PRN (Reason: Pain) fluconazole [Diflucan] 200 mg tablet 200 mg PO BID PRN (Reason: Candidiasis) 10 Days Qty: 20 0RF (DME) low profile sport carbon fiber insole with heel lift to right See Rx Instructions .Route .MEDSUPPLY Qty: 1 0RF Rx Instructions: As directed by DENI&O Anoro Ellipta 62.5-25 mcg/actuation blister with device 1 inh inhalation DAILY 90 Days Qty: 180 3RF gabapentin 300 mg capsule 1,200 mg PO TID 90 Days Qty: 1080 0RF azathioprine 50 mg tablet See Rx Instructions PO BID 90 Days Qty: 300 0RF Rx Instructions: 1 tab twice daily x 1month then increase to 2tabs twice a day. orally twice a day; cholecalciferol (vitamin D3) 50 mcg (2,000 unit) tablet 2,000 unit PO DAILY Qty: 90 3RF prednisone 20 mg tablet See Rx Instructions PO BID Qty: 120 2RF Rx Instructions: after 2wk takes 3.5tabs daily x2wk then 3tabs daily x2wk then 2.5tabs daily [id number] then stay on 2tabs daily omeprazole 40 mg capsule,delayed release(DR/EC) 40 mg PO BID Qty: 60 3RF azelastine 137 mcg (0.1 %) aerosol,spray 1 spray intranasal BID PRN (Reason: allergies) Rx Instructions: administer into each nostril tizanidine 4 mg Capsule 4 mg PO TID PRN (Reason: muscle spasms) Referrals: Rabia Singleton NP [Primary Care Provider] - Coding Level of Care Code ED Director Of Occupational Health for Ghislaine Gage
[2022-09-08 12:28] LABS: Basophils % 0.2 %; Eosinophils % 0.2 %; Hematocrit 45.6 % (42.0-52.0); Hemoglobin 14.5 g/dL (11.7-16.6); Lymphocytes # 0.8 10^3/uL (0.8-4.8); Lymphocytes % 6.5 %; Mean Corpuscular HGB Conc 31.8 g/dL (30.0-36.0); Mean Corpuscular Hemoglobin 30.3 pg (28.0-34.0); Mean Corpuscular Volume 95.4 fl (80-94); Mean Platelet Volume 9.7 fL (7.4-10.4); Monocytes # 0.4 10^3/uL (0.2-0.9); Monocytes % 3.3 %; Neutrophils # 10.79 10^3/uL (1.8-7.7); Neutrophils % 88.5 %; Nucleated Red Blood Cells % 0 %; Platelet Count 246 10^3/cmm (130-400); Red Blood Count 4.78 10^6/uL (4.1-5.3); Red Cell Distribution Width 13.9 % (12.1-15.1); White Blood Count 12.2 10^3/uL (4.0-10.0)
[2022-09-08 12:39] VITALS: BP 161/99; PULSE 88; O2SAT 93
[2022-09-08 12:46] LABS: Alanine Aminotransferase 19 U/L (0-41); Albumin Level 3.9 g/dL (3.5-5.2); Alkaline Phosphatase 72 U/L (40-130); Anion Gap 16.8 (5-19); Aspartate Amino Transferase 14 U/L (0-40); Blood Urea Nitrogen 16 mg/dL (8-23); Calcium 9.5 mg/dL (8.5-10.5); Carbon Dioxide 26 mmol/L (22-29); Chloride 100 mmol/L (98-107); Globulin 3.5 g/dL (1.3-4.6); Glucose 138 mg/dL (65-115); Osmolality Calculated 289 mOsm/kg (285-295); Potassium 4.8 mmol/L (3.5-5.1); Sodium 138 mmol/L (136-145); Total Bilirubin 0.3 mg/dL (0.15-1.2); Total Protein 7.4 g/dL (6.6-8.7)
[2022-09-08 12:47] LABS: Troponin(5th) Baseline 18 ng/L (0-15)
[2022-09-08 13:25] VITALS: BP 151/103; PULSE 89; O2SAT 93
== END 2022-09-08 14:55 | disposition left against medical advice (07) ==
PROVIDERS: Emergency Provider Family Medicine; PCP Nurse Practitioner Family
DX: R07.9 Chest pain, unspecified (principal); Z53.21 Procedure and treatment not carried out due to patient leaving prior to being seen by health care provider; F17.210 Nicotine dependence, cigarettes, uncomplicated; J44.9 Chronic obstructive pulmonary disease, unspecified; I10 Essential (primary) hypertension
CPT/HCPCS: 36415; 71045; 80053; 84484; 85025; 93005; 99285

== ENCOUNTER 2022-09-12 09:31 | Outpatient (CLI) | payer OTHER, SELFPAY ==
--- NOTE | 2022-09-12 09:57 | NM_ITS ---
WS: [id number] NUCLEAR MEDICINE BONE SCAN Radiopharmaceutical: 24.3 Tc-99m MDP mCi IV Injection site: Antecubital Postinjection imaging delay: 1 hr CLINICAL INFORMATION: hx of compression fractures, throacic back pain COMPARISON: CT thoracic September 12, 2022 FINDINGS: Bone lesions: Prior vertebroplasty changes involving the T5 and L1 vertebral bodies with compression fractures. Compression fracture superior endplate T6 seen on the prior recent CT demonstrates radiotracer activi ty compatible with acute to subacute compression. Residual radiotracer activity involving the T5 comp ression fracture. No other suspicious findings. Soft tissue contours: Normal. Kidneys: Normal. Other findings: Degenerative arthritis both AC joints. NM/NM bone scan whole body* [id number] IMPRESSION: 1. Compression fracture superior endplate T6 seen on the prior recent CT demon strates radiotracer activity compatible with acute to subacute compression. 2. Residual bony radiotracer uptake involving the T5 vertebral body with recen t vertebroplasty changes. 3. No other abnormal foci of uptake in the spine.
== END 2022-09-12 09:32 | disposition home or self-care (01) ==
LOC: RAD 09:32
PROVIDERS: PCP Nurse Practitioner Family; Visit Provider Orthopaedic Surgery
DX: S22.050A Wedge compression fracture of T5-T6 vertebra, initial encounter for closed fracture (principal); X58.XXXA Exposure to other specified factors, initial encounter
CPT/HCPCS: 78306; A9561

== ENCOUNTER 2022-09-12 10:04 | Outpatient (CLI) | payer OTHER, SELFPAY ==
--- NOTE | 2022-09-12 | CT_ITS ---
WS: [id number] CT chest wo con [id number] HISTORY: 3 month f/u 04/11 LDCT TECHNIQUE: Axial imaging performed through the thorax. Coronal and sagittal reformats are submitted. All CT scans at [place] use at least one of these dose optimization techniques: automated exposure control; mA and/or kV adjustment per patient size (includes targeted exams where dose is mat ched to clinical indication); or iterative reconstruction. CONTRAST: None DLP: 323.55 mGy.cm COMPARISON: 06/29/2022, 04/10/2022, 07/08/2020 Lungs and central airway: Chronic emphysema. Moderate interstitial thickening in the lower lung field s. LEFT lower lobe pulmonary nodules are reidentified without increase in size over several years. Th e largest measures 4 mm. No new mass or nodule. Nodule and bronchial secretions in the LEFT mainstem bronchus have nearly completely resolved. The nodule is much smaller in size suggesting this was prob ably of bronchial excretion. Pleura: Normal. No pleural effusion. Heart and pericardium: Normal size heart with no pericardial effusion. Mediastinum and lillian: No mediastinum or hilar adenopathy. Vessels: Mild atherosclerosis aorta. No aneurysm. Normal size pulmonary artery. Chest wall and lower neck: No soft tissue masses. Upper abdomen: Small hiatal hernia. Common bile duct is dilated as seen on prior exams dating back to 05/04/2021. Common bile duct measures 19 mm. Osseous structures: Prior vertebroplasties at T5 and L1. Numerous mild anterior compression fractures in the mid thoracic spine including T6, [address]/CT chest wo con [id number] IMPRESSION: 1. No increase in size. Subcentimeter LEFT lower lobe pulmonary nodule since 2 021. Largest measures 4 mm. 2. Chronic emphysema. 3. Nodule in the LEFT mainstem bronchus has nearly completely resolved. There is just very minimal bronchial wall thickening and a few remaining endobronchia l septations remaining.
== END 2022-09-12 10:05 | disposition home or self-care (01) ==
LOC: RAD 10:07
PROVIDERS: PCP Nurse Practitioner Family; Visit Provider Internal Medicine Pulmonary Disease
DX: R91.1 Solitary pulmonary nodule (principal); J43.9 Emphysema, unspecified
CPT/HCPCS: 71250; 72074; 99214

== ENCOUNTER 2022-09-12 10:08 | Outpatient (CLI) | payer MEDICARE, OTHER, SELFPAY ==
--- NOTE | 2022-09-12 17:00 | CT_ITS ---
WS: [id number] CT THORACIC SPINE HISTORY: M54.9 - Dorsalgia, unspecified TECHNIQUE: Contiguous 2.5 mm axial images are reviewed to thoracic spine. Images are reformatted in s agittal and coronal planes. All CT scans at [facility] use at least one of these dose optimiz ation techniques: automated exposure control; mA and/or kV adjustment per patient size (includes targ eted exams where dose is matched to clinical indication); or iterative reconstruction. DLP: 502.81 mGy.cm COMPARISON: Thoracic spine 08/10/2022 New vertebroplasty at T5. No retropulsion of the vertebral body. Loss of height by approximately 30%. Remote L1 vertebroplasty. Small amount of methylmethacrylate extends into the anterior epidural space contacting the RIGHT late ral thoracic cord. New since 06/29/2022 is 20% compression fracture of T6. There is very mild loss of height involving T8, T9 and T10 and T12 and L2 which appears stable. Slight increase in the thoracic kyphosis. Dorsal column stimulator at the T8-9 level. Chronic centrilobular and paraseptal emphysema. CT/CT thoracic spin wo con* [id number] IMPRESSION: 1. Prior vertebroplasties at T5 and L1. Small amount of methylmethacrylate at T5 contacts the ventral thoracic cord. 2. New 20% compression fracture at T6 since 06/29/2022. 3. Stable very mild anterior wedging of T8, T9, T10, T12 and L2.
== END 2022-09-12 10:09 | disposition home or self-care (01) ==
PROVIDERS: PCP Nurse Practitioner Family; Visit Provider Internal Medicine Rheumatology
DX: M54.6 Pain in thoracic spine (principal); M54.9 Dorsalgia, unspecified; M48.54XA Collapsed vertebra, not elsewhere classified, thoracic region, initial encounter for fracture; Z91.81 History of falling
CPT/HCPCS: 72128

== ENCOUNTER → 2022-09-13 14:50 | Outpatient (BNVA) | payer MEDICARE, OTHER, SELFPAY | PROVIDERS: PCP Nurse Practitioner Family; Visit Provider Internal Medicine Rheumatology | DX: H16.001 Unspecified corneal ulcer, right eye (principal); Z79.899 Other long term (current) drug therapy; Z71.85 Encounter for immunization safety counseling | CPT/HCPCS: 99214 ==

== ENCOUNTER 2022-09-29 12:17 | Outpatient (CLI) | payer OTHER, SELFPAY ==
[2022-09-29 14:08] LABS: Alanine Aminotransferase 23 U/L (0-41); Albumin Level 3.7 g/dL (3.5-5.2); Alkaline Phosphatase 86 U/L (40-130); Anion Gap 13.6 (5-19); Aspartate Amino Transferase 18 U/L (0-40); Blood Urea Nitrogen 15 mg/dL (8-23); Calcium 9.2 mg/dL (8.5-10.5); Carbon Dioxide 29 mmol/L (22-29); Chloride 103 mmol/L (98-107); Glomerular Filtration Rate 66.2 mL/min (90-130); Glucose 112 mg/dL (65-115); Osmolality Calculated 294 mOsm/kg (285-295); Potassium 4.6 mmol/L (3.5-5.1); Sodium 141 mmol/L (136-145); Total Bilirubin 0.2 mg/dL (0.15-1.2); Total Protein 6.7 g/dL (6.6-8.7)
[2022-09-29 14:12] LABS: Calcium 9.1 mg/dL (8.5-10.5)
[2022-09-29 14:17] LABS: Parathyroid Hormone 19.7 pg/mL (15-65)
[2022-09-30 08:49] LABS: PROTEIN, TOTAL 6.4 g/dL (6.1-8.1)
[2022-10-02 14:55] LABS: ALBUMIN 3.3 g/dL (3.8-4.8); ALPHA 1 GLOBULIN 0.4 g/dL (0.2-0.3); BETA 1 GLOBULIN 0.5 g/dL (0.4-0.6); BETA 2 GLOBULIN 0.4 g/dL (0.2-0.5); GAMMA GLOBULIN 0.8 g/dL (0.8-1.7)
== END 2022-09-29 12:18 | disposition home or self-care (01) ==
PROVIDERS: PCP Nurse Practitioner Family; Referring Provider Neurological Surgery; Visit Provider Internal Medicine Rheumatology
DX: M81.0 Age-related osteoporosis without current pathological fracture (principal)
CPT/HCPCS: 36415; 80053; 82310; 83970; 84155; 84165

== ENCOUNTER → 2023-09-10 14:18 | Outpatient (BNVA) | payer MEDICARE, OTHER, SELFPAY | PROVIDERS: PCP Nurse Practitioner Family; Visit Provider Nurse Practitioner Family | DX: J30.9 Allergic rhinitis, unspecified (principal); Z79.899 Other long term (current) drug therapy; I10 Essential (primary) hypertension; E66.3 Overweight; R60.9 Edema, unspecified; J01.00 Acute maxillary sinusitis, unspecified; H61.22 Impacted cerumen, left ear; H61.21 Impacted cerumen, right ear | CPT/HCPCS: 80053; 80061; 84443; 85025 ==

== ENCOUNTER → 2023-09-24 11:27 | Outpatient (BNVA) | payer MEDICARE, OTHER, SELFPAY | PROVIDERS: PCP Nurse Practitioner Family; Visit Provider Internal Medicine Rheumatology | DX: Z79.899 Other long term (current) drug therapy (principal); H16.001 Unspecified corneal ulcer, right eye; Z71.85 Encounter for immunization safety counseling | CPT/HCPCS: 36415; 82657; 99214 ==

== ENCOUNTER → 2024-01-15 11:28 | Outpatient (BNVA) | payer MEDICARE, OTHER, SELFPAY | PROVIDERS: PCP Nurse Practitioner Family; Visit Provider Nurse Practitioner Family | DX: I10 Essential (primary) hypertension (principal); M79.10 Myalgia, unspecified site | CPT/HCPCS: 80053; 82306; 85025 ==

== ENCOUNTER → 2024-04-22 11:26 | Outpatient (BNVA) | payer MEDICARE, OTHER, SELFPAY | PROVIDERS: PCP Nurse Practitioner Family; Visit Provider Internal Medicine Rheumatology | DX: Z79.899 Other long term (current) drug therapy (principal); H16.001 Unspecified corneal ulcer, right eye; Z71.85 Encounter for immunization safety counseling | CPT/HCPCS: 36415; 80076; 82565; 85025; 85651; 86140; 99214 ==

== ENCOUNTER → 2024-07-08 13:22 | Outpatient (BNVA) | payer MEDICARE, OTHER, SELFPAY | PROVIDERS: Visit Provider Surgery | DX: Z12.11 Encounter for screening for malignant neoplasm of colon (principal) | CPT/HCPCS: 99024; 99204 ==

== ENCOUNTER → 2024-08-19 13:11 | Outpatient (BNVA) | payer MEDICARE, OTHER, SELFPAY | PROVIDERS: PCP Nurse Practitioner Family; Visit Provider Internal Medicine Rheumatology | DX: H16.001 Unspecified corneal ulcer, right eye (principal); Z79.899 Other long term (current) drug therapy; M25.50 Pain in unspecified joint; Z71.85 Encounter for immunization safety counseling; M17.0 Bilateral primary osteoarthritis of knee; M11.262 Other chondrocalcinosis, left knee; M11.261 Other chondrocalcinosis, right knee | CPT/HCPCS: 73562; 99214 ==

== ENCOUNTER → 2024-09-04 14:33 | Outpatient (BNVA) | payer MEDICARE, OTHER, SELFPAY | PROVIDERS: PCP Nurse Practitioner Family; Visit Provider Internal Medicine Rheumatology | DX: M25.561 Pain in right knee (principal); M25.562 Pain in left knee; M17.0 Bilateral primary osteoarthritis of knee | CPT/HCPCS: 20610; J1010; J9999 ==

== ENCOUNTER 2024-09-30 12:53 | Emergency (ER) | payer OTHER, MEDICARE, SELFPAY ==
[2024-09-30 13:00] VITALS: BP 129/71; PULSE 92; RESP 16; TEMP 36.6; O2SAT 93
--- NOTE | 2024-09-30 13:12 | W.ED.BACK ---
HPI - Back Pain/Injury General: Chief Complaint: Extremity Injury, Lower Stated Complaint: pain in lower extremities Time Seen by Provider: 09/30/24 13:05 Source: patient Mode of arrival: ambulatory Limitations: no limitations History of Present Illness: Patient is a nice 74-year-old male here requesting something to help with his back discomfort. Patient states he has a longstanding history of chronic lower back pain stating that he has lots of issues involving his L5/S1 region. He states he chronically follows with pain management. He states every once in a while he will get flares of his lower back pain which seems to be the case today. He is complaining of pain mainly near his right sciatic region radiating down his leg. He states his Pain Management Clinic/Dr. Greene is closing. States he normally takes oxycodone for his pain. He states in the past, during flares, he has gotten shots that have helped. He is unsure on the medication names given previously. He has no acute complaints today-states this just an exacerbation of his chronic pain. Patient later tells me he believes he has a sinus infection as he has pain/pressure to frontal/maxillary regions and requsting antibiotics. MD elicited complaint: back pain Onset (ago): day(s) Timing: constant Severity: severe Similar Symptoms Previously: Yes Exacerbating factors: movement, walking and lifting Relieving factors: none Associated symptoms: Reports difficulty walking; Deny abdominal pain, chills, dysuria, fatigue, fever(s) or hematuria Work related injury: No Related Data Home Medications ?Medication ?Instructions ?Recorded ?Confirmed oxycodone 10 mg tablet 10 mg PO Q4H PRN Pain 03/15/21 09/04/24 baclofen 10 mg tablet 10 mg PO TID 04/22/24 09/04/24 duloxetine 60 mg capsule,delayed 60 mg PO DAILY 08/19/24 09/04/24 release Previous Rx's ?Medication ?Instructions ?Recorded umeclidinium 62.5 mcg-vilanterol 1 inh inhalation DAILY 90 days 10/02/22 25 mcg/actuation powdr for #180 ea inhalation (Anoro Ellipta) azelastine 137 mcg (0.1 %) nasal 2 spray intranasal BID #30 mL 01/15/24 spray fexofenadine 180 mg tablet 180 mg PO DAILY 90 days #90 tabs 01/15/24 (Anni Allergy) hydroxychloroquine 100 mg tablet 100 mg PO BID #180 tabs 07/03/24 Held on 08/19/24. Instructions: Doctor's Order azathioprine 100 mg tablet 100 mg PO BID #180 tabs 08/19/24 pregabalin 200 mg capsule 200 mg PO BID #180 caps 08/19/24 sulfasalazine 500 mg tablet 0.5 g PO BID #60 tabs 08/19/24 amoxicillin 875 mg-potassium 1 tab PO BID #14 tabs 09/30/24 clavulanate 125 mg tablet Allergies Allergy/AdvReac Type Severity Reaction Status Date / Time lisinopril Allergy Unknown Verified 09/30/24 14:34 celecoxib (From Celebrex) AdvReac GI upset Verified 09/30/24 14:34 Review of Systems Const: Denies: fever(s), chills, body aches, fatigue or malaise Card: Denies: chest pain Resp: Denies: dyspnea GI: Denies: abdominal pain : Denies: flank pain, dysuria or hematuria Musc: Reports: back pain; Denies: neck pain, extremity pain, extremity swelling, joint pain, joint swelling or joint redness Neuro: Reports: difficulty walking; Denies: headache(s), numbness in extremities, weakness in extremities, dizziness or confusion PFSH ED PFSH: Medical History Osteoarthritis of knees, bilateral Immunization counseling High risk medication use Chronic steroid use Corneal ulcer of right eye Helicobacter pylori gastritis History of Carreno's esophagus Barretts esophagus Diverticulitis Chronic obstructive pulmonary emphysema Environmental and seasonal allergies DDD (degenerative disc disease) Anxiety Hypertension Surgical History History of open sigmoidectomy History of colonoscopy (05/05/21) 2015 2020 - mild diverticulosis History of esophagogastroduodenoscopy (EGD) (05/05/21) 2015 2020 - esophagitis History of hip fracture Left Hip October 11, 2019 surgery in [place], [place] History of knee surgery History of lumbar surgery History of appendectomy Family History Other Arthritis Rheumatoid arthritis Denies family history of Bleeding disorder Social History Smoking and tobacco/nicotine status: current every day tobacco/nicotine user cigarettes Packs smoked per day: 0.5 Second hand smoke exposure: Yes Alcohol intake: current Alcohol intake frequency: holidays/special occasions only Substance/Drug Use: never Caregiver/support person: No Lives independently: Yes Household members: significant other Housing: House Marital status: Life Partner Number of children: 0 Highest education level completed: Associate Degree: Occupational, Technical, Vocational Program service: Yes Current occupational status: retired Pets and animals: Yes Do you think of yourself as: Straight/Heterosexual Current gender identity: Male Physical Exam Const: COMMON NORMALS: average body habitus, patient oriented x3, no limitations, healthy appearing, alert and well nourished GENERAL APPEARANCE: cooperative and in distress (appears uncomfortable secondary to pain) Neck/C-Spine: COMMON NORMALS: full ROM and no meningeal signs Resp: COMMON NORMALS: normal respiratory effort and clear to auscultation bilaterally AUSCULTATION: clear to auscultation bilaterally Cardio: COMMON NORMALS: regular rate and regular rhythm RATE: regular rate RHYTHM: regular rhythm GI: COMMON NORMALS: Normal to inspection, nondistended, normoactive bowel sounds present, Soft to palpation, non-tender and no masses PALPATION: Yes Soft to palpation : COMMON NORMALS: Yes no CVA tenderness BLADDER/KIDNEY EXAM: Yes no CVA tenderness Back/Pelvis: COMMON NORMALS: no CVA tenderness THORACIC SPINE/UPPER BACK: No thoracic spinal tenderness and No paraspinal muscle tenderness LUMBAR SPINE/LOWER BACK: No lumbar spinal tenderness PELVIS: Yes sciatic notch tenderness on the right SACROILIAC JOINTS: Yes SI joint(s) abnormal SI joint details: tender to palpation SACRUM: no tenderness COCCYX: no tenderness Extremity: COMMON NORMALS: normal to inspection, full ROM, capillary refill normal, no joint enlargement, no clubbing, cyanosis or edema, no calf tenderness and no pedal edema GENERAL: Yes normal exam except as noted Neuro: COMMON NORMALS: patient oriented x3, moves all extremities, no focal motor deficits, no sensory deficits noted and gait normal (with help of his cane) SENSORIUM/ORIENTATION: Yes alert MENINGEAL SIGNS: Yes no meningeal signs MOTOR EXAM: 5/5 motor strength present throughout Course Vital Signs: Vital signs: Vital Signs Temperature 97.9 F 09/30/24 13:00 Pulse Rate 81 09/30/24 14:24 Respiratory Rate 20 H 09/30/24 14:24 Blood Pressure 103/65 09/30/24 14:24 Pulse Oximetry 95 09/30/24 14:24 Oxygen Delivery Me thod Room Air 09/30/24 14:24 MDM - Back Pain/Injury Medical Decision Making Patient feeling better after IV medications here. He already takes Baclofen, Pregabalin, Oxycodone at home. Recommend he continue to follow-up with PCP and/for pain management for his back pain. Will place him on Augmentin for his sinusitis. Medical Records I reviewed the patient's medical records. No radiology studies performed this visit Discharge Plan Discharge Patient Disposition: Home Clinical Impression: Acute exacerbation of chronic low back pain Sinusitis Qualifiers: Sinusitis location: unspecified location Chronicity: acute Recurrence: non-recurrent Qualified Code(s): J01.90 - Acute sinusitis, unspecified Condition: Stable Prescriptions: New amoxicillin-pot clavulanate 875-125 mg tablet 1 tab PO BID Qty: 14 0RF No Action oxycodone 10 mg tablet 10 mg PO Q4H PRN (Reason: Pain) baclofen 10 mg tablet 10 mg PO TID azelastine 137 mcg (0.1 %) spray,non-aerosol 2 spray intranasal BID Qty: 30 3RF Rx Instructions: administer into each nostril fexofenadine [Anni Allergy] 180 mg tablet 180 mg PO DAILY 90 Days Qty: 90 1RF duloxetine 60 mg capsule,delayed release(DR/EC) 60 mg PO DAILY azathioprine 100 mg tablet 100 mg PO BID Qty: 180 1RF sulfasalazine 500 mg tablet 0.5 g PO BID Qty: 60 3RF Rx Instructions: Take 1 tab daily x1wk then stay on 1 tab twice daily.... give with food (meal/snack) pregabalin 200 mg capsule 200 mg PO BID Qty: 180 1RF Anoro Ellipta 62.5-25 mcg/actuation blister with device 1 inh inhalation DAILY 90 Days Qty: 180 3RF hydroxychloroquine 100 mg tablet 100 mg PO BID Qty: 180 1RF Discharge Orders: Discharge ED (Routine); Ordered 09/30/24 Ordered By: Lenora Wise Referrals: Sofía Brandt NP [Primary Care Provider, Unknown] Activity Restrictions/Additional Instructions: You may continue to follow-up with your primary care providers as well as pain management for further evaluation and treatment of your lower back pain. Print Language: Sudanese Coding Level of Care Code ED Analyst [employer] for Ghislaine Gage
[2024-09-30 13:17] VITALS: RESP 18
[2024-09-30] MEDS: morphine 4 mg/mL SDV 1 mL IVP (13:17)
[2024-09-30] MEDS: dexamethasone 10 mg/mL INJ 8 MG IVP (13:19)
[2024-09-30] MEDS: ketorolac 30 mg/mL INJ IVP (13:22)
[2024-09-30] MEDS: orphenadrine 30 mg/mL Inj 2 mL 60 MG IVP (13:24)
[2024-09-30 13:54] VITALS: BP 112/70; PULSE 75; RESP 18; O2SAT 94
[2024-09-30] MEDS: HYDROmorphone 0.5 MG/0.5 ML INJ 1 MG IVP (14:17)
[2024-09-30 14:24] VITALS: BP 103/65; PULSE 81; RESP 20; O2SAT 95
[2024-09-30 15:14] VITALS: BP 104/68; PULSE 77; O2SAT 94
== END 2024-09-30 15:15 | disposition home or self-care (01) ==
PROVIDERS: Emergency Provider Physician Assistant; PCP Nurse Practitioner Family
DX: M54.50 Low back pain, unspecified (principal); J01.90 Acute sinusitis, unspecified; F17.210 Nicotine dependence, cigarettes, uncomplicated; I10 Essential (primary) hypertension
CPT/HCPCS: 96374; 96375; 99284; J1100; J1171; J1885; J2270; J2360

== ENCOUNTER 2024-11-10 12:53 | Outpatient (CLI) | payer MEDICARE, OTHER, SELFPAY ==
[2024-11-10 13:40] LABS: Alanine Aminotransferase 10 U/L (0-41); Albumin Level 4.2 g/dL (3.5-5.2); Alkaline Phosphatase 84 U/L (40-130); Aspartate Amino Transferase 17 U/L (0-40); Bilirubin Direct 0.21 mg/dL (0.00-0.30); C Reactive Protein 21.3 mg/L (0.0-4.9); Globulin 3.5 g/dL (1.3-4.6); Total Bilirubin 0.5 mg/dL (0.15-1.2); Total Protein 7.7 g/dL (6.6-8.7)
[2024-11-10 14:34] LABS: Basophils % 0.4 %; Eosinophils # 0.1 10^3/uL (0.0-0.8); Eosinophils % 0.6 %; Hematocrit 44.8 % (37-53); Lymphocytes % 12.3 %; Mean Corpuscular HGB Conc 32.1 g/dL (30-55); Mean Corpuscular Hemoglobin 32.7 pg (27-33); Mean Corpuscular Volume 101.6 fl (82-101); Mean Platelet Volume 10.4 fL (7.4-10.4); Monocytes # 0.7 10^3/uL (0.2-0.9); Monocytes % 8.5 %; Neutrophils # 6.27 10^3/uL (1.8-7.7); Neutrophils % 77.3 %; Nucleated Red Blood Cells % 0 %; Platelet Count 210 10^3/cmm (157-399); Red Blood Count 4.41 10^6/uL (3.85-5.65); Red Cell Distribution Width 15.2 % (12.1-15.1); White Blood Count 8.11 10^3/uL (3.29-11.43)
[2024-11-10 14:50] LABS: Erythrocyte Sedimentation Rate 18 mm/hr (0-10)
== END 2024-11-10 12:54 | disposition home or self-care (01) ==
LOC: LAB 12:55
PROVIDERS: PCP Nurse Practitioner Family; Visit Provider Internal Medicine Rheumatology
DX: Z79.899 Other long term (current) drug therapy (principal)
CPT/HCPCS: 36415; 80076; 82565; 85025; 85651; 86140

== ENCOUNTER → 2024-11-20 13:37 | Outpatient (BNVA) | payer OTHER, SELFPAY | PROVIDERS: PCP Nurse Practitioner Family; Visit Provider Internal Medicine Rheumatology | DX: H16.001 Unspecified corneal ulcer, right eye (principal); Z79.899 Other long term (current) drug therapy; Z71.85 Encounter for immunization safety counseling | CPT/HCPCS: 99214 ==

== ENCOUNTER 2025-02-12 11:00 | Outpatient (CLI) | payer OTHER, SELFPAY ==
--- NOTE | 2025-02-12 11:00 | US_ITS ---
WS: [id number] ULTRASOUND SOFT TISSUES popliteal fossa. HISTORY: M25.561 - Pain in right knee COMPARISON: None available. TECHNIQUE: 2-D and color Doppler imaging is submitted. Ultrasound is performed in the popliteal fossa. There are no cystic masses identified. No complex cystic mass. Normal appearance of the subcu soft tissues. US/US soft tissue/extremity [id number] IMPRESSION: No bilateral [place]'s cyst.
== END 2025-02-12 11:01 | disposition home or self-care (01) ==
LOC: RAD 11:01
PROVIDERS: PCP Nurse Practitioner Family; Visit Provider Internal Medicine Rheumatology
DX: M25.561 Pain in right knee (principal); M25.562 Pain in left knee
CPT/HCPCS: 76882

== ENCOUNTER → 2025-04-20 13:49 | Outpatient (BNVA) | payer OTHER, SELFPAY | PROVIDERS: PCP Nurse Practitioner Family; Visit Provider Internal Medicine Rheumatology | DX: H16.001 Unspecified corneal ulcer, right eye (principal); Z79.899 Other long term (current) drug therapy; Z71.85 Encounter for immunization safety counseling | CPT/HCPCS: 99214 ==